=== PATIENT | female | born 1990 | race Caucasian/White ===

== ENCOUNTER 2016-04-07 17:26 | Emergency (ER) | payer BC, MEDICAID ==
--- NOTE | 2016-04-07 17:36 | ER Document Report ---
ED Medical Screen (RME) - General Stated Complaint: BLOOD PRESSURE PROBLEM Time seen by provider: 17:32 Mode of Arrival: Ambulatory Information source: Patient Notes: 26-year-old female presents to ED for elevated blood pressure when she took her pressure at [employer]. She states her blood pressure was 185/95. She's having headache with arm tingling back pain. She states she is 12 weeks . She states that [facility] and every time it's high. She states that they took did an ultrasound on Sunday and there was a heartbeat for her baby. She states she's having body aches all over including a headache. 2 para 1 I have greeted and performed a rapid initial assessment of this patient. A comprehensive ED assessment and evaluation of the patient, analysis of test results and completion of medical decision making process will be conducted by an additional ED providers. TRAVEL OUTSIDE OF THE [place] IN LAST 30 DAYS: No - Related Data Allergies/Adverse Reactions: No Known Allergies Allergy (Verified 02/26/16 16:06) Past Medical History Pulmonary Medical History: Reports: Hx Asthma Neurological Medical History: Reports: Hx Migraine Endocrine Medical History: Reports: Hx Diabetes Mellitus Type 2 Renal/ Medical History: Reports: Hx Ovarian Cysts Psychiatric Medical History: Reports: Hx Attention Deficit Hyperactivity Disorder - add, Hx Depression - Immunizations Hx Diphtheria, Pertussis, Tetanus Vaccination: Yes
[2016-04-07 18:02] LABS: ABSOLUTE EOSINOPHILS # (AUTO) 0.2 10^3/uL (0.0-0.6); ABSOLUTE LYMPHOCYTES (AUTO) 2.2 10^3/uL (0.5-4.7); ABSOLUTE MONOCYTES (AUTO) 0.5 10^3/uL (0.1-1.4); ABSOLUTE NEUT (AUTO) 10.8 10^3/uL (1.7-8.2); BASOPHILS % (AUTO) 0.2 % (0-2); EOSINOPHILS % (AUTO) 1.4 % (0-6); HEMATOCRIT 36.5 % (36.0-47.0); HEMOGLOBIN 11.9 g/dL (12.0-15.5); HGB HCT DIFFERENCE -0.8; MEAN CORPUSCULAR HEMOGLOBIN 26.7 pg (27.0-33.4); MEAN CORPUSCULAR HGB CONC 32.7 g/dL (32.0-36.0); MEAN CORPUSCULAR VOLUME 82 fl (80-97); RED BLOOD COUNT 4.47 10^6/uL (3.72-5.28); RED CELL DISTRIBUTION WIDTH 14.3 % (11.5-14.0); SEGMENTED NEUTROPHILS % (AUTO) 78.4 % (42-78); WHITE BLOOD COUNT 13.8 10^3/uL (4.0-10.5)
[2016-04-07 18:19] LABS: APPEARANCE,URINE SLIGHTLY-CLOUDY; BILIRUBIN,URINE NEGATIVE (NEGATIVE); CALCIUM OXALATE CRYSTALS,URINE FEW /HPF; GLUCOSE, URINE NEGATIVE (NEGATIVE); KETONES,URINE 20 mg/dL (NEGATIVE); LEUKOCYTE ESTERASE,URINE SMALL (NEGATIVE); NITRITE,URINE NEGATIVE (NEGATIVE); PROTEIN,URINE 30 mg/dL (NEGATIVE); URINE SPECIFIC GRAVITY 1.031; UROBILINOGEN,URINE NEGATIVE mg/dL (<2.0)
[2016-04-07 18:23] LABS: ALANINE AMINOTRANSFERASE 21 U/L (9-52); ALBUMIN 3.7 g/dL (3.5-5.0); ALKALINE PHOSPHATASE 64 U/L (38-126); ANION GAP 12 (5-19); ASPARTATE AMINO TRANSFERASE 18 U/L (14-36); BILIRUBIN,TOTAL 0.5 mg/dL (0.2-1.3); BLOOD UREA NITROGEN 10 mg/dL (7-20); CALCIUM 9.9 mg/dL (8.4-10.2); CARBON DIOXIDE 24 mmol/L (22-30); CHLORIDE 104 mmol/L (98-107); CREATININE RESULT 0.52 mg/dL (0.52-1.25); GLUCOSE 78 mg/dL (75-110); LIPASE 78.3 U/L (23-300); POTASSIUM 4.1 mmol/L (3.6-5.0); SODIUM 140.4 mmol/L (137-145); TOTAL PROTEIN 7.3 g/dL (6.3-8.2)
--- NOTE | 2016-04-07 19:25 | ER Document Report ---
ED Blood Pressure Problem - General Chief Complaint: Blood Pressure Problem Stated Complaint: BLOOD PRESSURE PROBLEM Mode of Arrival: Ambulatory Information source: Patient Notes: Patient is a 26-year-old female 12 weeks who presents to the ER today for elevated blood pressure. Patient has been having weekly appointments with her PLATFORM WORKER for her elevated blood pressure and is on lisinopril prescribed by them twice a day. Patient states that she did take that today but has not taken her second dose because it is not time yet. She admits to headache and knows that that is when her blood pressure is getting high. On arrival her blood pressure was 152/99. TRAVEL OUTSIDE OF THE [place] IN LAST 30 DAYS: No - Related Data Allergies/Adverse Reactions: No Known Allergies Allergy (Verified 04/07/16 17:34) Past Medical History - General Information source: Patient - Social History Smoking Status: Former Smoker Chew tobacco use (# tins/day): No Frequency of alcohol use: None Drug Abuse: None Family History: Reviewed & Not Pertinent Patient has suicidal ideation: No Patient has homicidal ideation: No Pulmonary Medical History: Reports: Hx Asthma Neurological Medical History: Reports: Hx Migraine Endocrine Medical History: Reports: Hx Diabetes Mellitus Type 2 Renal/ Medical History: Reports: Hx Ovarian Cysts. Denies: Hx Peritoneal Dialysis Psychiatric Medical History: Reports: Hx Attention Deficit Hyperactivity Disorder - add, Hx Depression - Immunizations Hx Diphtheria, Pertussis, Tetanus Vaccination: Yes Review of Systems - Review of Systems Constitutional: No symptoms reported EENT: No symptoms reported Cardiovascular: See HPI Respiratory: No symptoms reported Gastrointestinal: No symptoms reported Genitourinary: No symptoms reported Female Genitourinary: See HPI Musculoskeletal: No symptoms reported Skin: No symptoms reported Hematologic/Lymphatic: No symptoms reported Neurological/Psychological: No symptoms reported Physical Exam - Vital signs Vitals: Temp Pulse Resp BP Pulse Ox 98.4 F 99 18 152/99 H 99 04/07/16 17:34 04/07/16 17:34 04/07/16 17:34 04/07/16 17:34 04/07/16 17:34 - Notes Notes: PHYSICAL EXAMINATION: GENERAL: Well-appearing and in no acute distress. HEAD: Atraumatic, normocephalic. EYES: Pupils equal round and reactive to light, extraocular movements intact, sclera anicteric, conjunctiva are normal. NECK: Normal range of motion, supple without lymphadenopathy LUNGS: CTAB and equal. No wheezes rales or rhonchi. HEART: Regular rate and rhythm without murmurs EXTREMITIES: Normal range of motion, no pitting edema. No cyanosis. NEUROLOGICAL: Cranial nerves grossly intact. Normal sensory/motor exams. PSYCH: Normal mood, normal affect. SKIN: Warm, Dry, normal turgor, no rashes or lesions noted Course - Re-evaluation Re-evalutation: 04/07/16 21:40 Pt was given a dose of methyldopa here which did reduce her bp to 129/101 from 152/101 on arrival. She states that she feels much better. She has follow-up this week with her PLATFORM WORKER for this exact issue. - Vital Signs Vital signs: Temp Pulse Resp BP Pulse Ox 98.4 F 99 18 152/99 H 99 04/07/16 17:34 04/07/16 17:34 04/07/16 17:34 04/07/16 17:34 04/07/16 17:34 - Laboratory Result Diagrams: 04/07/16 17:45 04/07/16 17:45 Laboratory results interpreted by me: 04/07/16 04/07/16 04/07/16 17:45 17:45 17:45 WBC 13.8 H Hgb 11.9 L MCH 26.7 L RDW 14.3 H Seg Neutrophils % 78.4 H Absolute Neutrophils 10.8 H Beta HCG, Quant 51720.00 H Urine Protein 30 H Urine Ketones 20 H Ur Leukocyte Esterase SMALL H Discharge - Discharge Clinical Impression: Hypertension Qualifiers: Hypertension type: essential hypertension Qualified Code(s): I10 - Essential ( primary) hypertension Qualifiers: Weeks of gestation: 12 weeks Qualified Code(s): Z3A.12 - 12 weeks gestation of Condition: Stable Disposition: HOME, SELF-CARE Additional Instructions: Return immediately for any new or worsening symptoms. Follow up with primary care provider, call tomorrow to make followup appointment. Forms: Return to Work
[2016-04-07] MEDS ORDERED: METHYLDOPA 250 MG TABLET PO ONE (20:13)
[2016-04-07] MEDS ORDERED: ACETAMINOPHEN 325 MG TABLET PO ONE ×2 (20:13→23:55)
[2016-04-07] MEDS ORDERED: LISINOPRIL 10 MG TABLET PO ONE (23:47)
[2016-04-08 00:07] VITALS: BP 151/95
== END 2016-04-08 00:05 | disposition home or self-care (01) ==
LOC: ER 17:26
DX: O16.1 Unspecified maternal hypertension, first trimester (principal); Z79.899 Other long term (current) drug therapy; O26.891 Other specified pregnancy related conditions, first trimester; R51 Headache; O24.111 Pre-existing type 2 diabetes mellitus, in pregnancy, first trimester; E11.9 Type 2 diabetes mellitus without complications; Z3A.12 12 weeks gestation of pregnancy; Z87.891 Personal history of nicotine dependence
CPT/HCPCS: 99283; 36415; 84702; 83690; 85025; 80053; 81001; J3490

== ENCOUNTER 2016-07-20 14:54 | Emergency (ER) | payer BC, MEDICAID ==
--- NOTE | 2016-07-20 15:22 | ER Document Report ---
ED Skin Rash/Insect Bite/Abscs - General Chief Complaint: Rash Stated Complaint: RASH Time seen by provider: 15:22 Mode of Arrival: Ambulatory Information source: Patient Notes: 26-year-old female presents to ED for rash that started on Sunday. She states she went to the beach on [place] and Sunday. On Sunday she went to the primary doctor with swollen eyes and rash to the face they gave her some steroid eyedrops. By Sunday the left eye has started swelling they gave her IM antibiotics. She said the rash to their hand and leg and abdomen had started by Sunday and she started using Benadryl and Caladryl lotion and she has continued to have itching and rash. She is 6 months . With history of diabetes and high blood pressure. TRAVEL OUTSIDE OF THE [place] IN LAST 30 DAYS: No - HPI Patient complains to provider of: Skin rash/lesion Onset: Other Onset/Duration: - Sunday Quality of pain: No pain Severity: None Pain Level: Denies Skin Character: Rash Quality of rash: Painful Identify cause: No Exacerbated by: Denies Relieved by: Denies Similar symptoms previously: Yes Recently seen / treated by doctor: Yes - Related Data Allergies/Adverse Reactions: No Known Allergies Allergy (Verified 07/20/16 15:05) Past Medical History - General Information source: Patient - Social History Smoking Status: Never Smoker Cigarette use (# per day): No Chew tobacco use (# tins/day): No Smoking Education Provided: Yes Frequency of alcohol use: None Drug Abuse: None Lives with: Family Family History: Reviewed & Not Pertinent Patient has suicidal ideation: No Patient has homicidal ideation: No - Past Medical History Cardiac Medical History: Reports: Hx Hypertension Pulmonary Medical History: Reports: Hx Asthma EENT Medical History: Reports: None Neurological Medical History: Reports: Hx Migraine Endocrine Medical History: Reports: Hx Diabetes Mellitus Type 2 Renal/ Medical History: Reports: Hx Ovarian Cysts Malignancy Medical History: Reports: None GI Medical History: Reports: None Musculoskeltal Medical History: Reports None Skin Medical History: Reports None Psychiatric Medical History: Reports: Hx Attention Deficit Hyperactivity Disorder - add, Hx Depression Traumatic Medical History: Reports: None Infectious Medical History: Reports: None Surgical Hx: Negative Past Surgical History: Reports: None - Immunizations Hx Diphtheria, Pertussis, Tetanus Vaccination: Yes Review of Systems - Review of Systems Constitutional: No symptoms reported EENT: No symptoms reported Cardiovascular: No symptoms reported Respiratory: No symptoms reported Gastrointestinal: No symptoms reported Genitourinary: No symptoms reported Female Genitourinary: No symptoms reported Musculoskeletal: No symptoms reported Skin: No symptoms reported Hematologic/Lymphatic: No symptoms reported Neurological/Psychological: No symptoms reported -: Yes All other systems reviewed and negative Physical Exam - Vital signs Vitals: Temp Pulse Resp BP Pulse Ox 98.5 F 100 18 130/87 H 96 07/20/16 15:03 07/20/16 15:03 07/20/16 15:03 07/20/16 15:03 07/20/16 15:03 Interpretation: Normal - General General appearance: Appears well, Alert - HEENT Head: Normocephalic, Atraumatic Eyes: Normal Pupils: PERRL - Respiratory Respiratory status: No respiratory distress Chest status: Nontender Breath sounds: Normal Chest palpation: Normal - Cardiovascular Rhythm: Regular Heart sounds: Normal auscultation Murmur: No - Abdominal Inspection: Normal Distension: No distension Bowel sounds: Normal Tenderness: Nontender Organomegaly: No organomegaly - Back Back: Normal, Nontender - Extremities General upper extremity: Normal inspection, Nontender, Normal color, Normal ROM , Normal temperature General lower extremity: Normal inspection, Nontender, Normal color, Normal ROM , Normal temperature, Normal weight bearing. No: Merly's sign - Neurological Neuro grossly intact: Yes Cognition: Normal Orientation: AAOx4 [place] Coma Scale Eye Opening: Spontaneous [place] Coma Scale Verbal: Oriented [place] Coma Scale Motor: Obeys Commands [place] Coma Scale Total: 15 Speech: Normal Motor strength normal: LUE, RUE, LLE, RLE Sensory: Normal - Psychological Associated symptoms: Normal affect, Normal mood - Skin Skin Temperature: Warm Skin Moisture: Dry Skin Color: Normal Skin irregularity: Rash Location of irregularity: Face, Abdomen, Extremities Character of irregularity: Maculopapular, Urticarial Course - Re-evaluation Re-evalutation: 07/20/16 16:11 Patient is [address] rash [address] Gaston did a . Will treat with 1% [id number] cortisone cream, Caladryl, Domeboro solution. Patient to follow-up with her CHILD PSYCHOLOGY TEACHER. Patient to be off work until Sunday to help with the itching and rash. - Vital Signs Vital signs: Temp Pulse Resp BP Pulse Ox 98.5 F 100 18 130/87 H 96 07/20/16 15:03 07/20/16 15:03 07/20/16 15:03 07/20/16 15:03 07/20/16 15:03 Discharge - Discharge Clinical Impression: Contact dermatitis Qualifiers: Contact dermatitis type: allergic Contact dermatitis trigger: unspecified trigger Qualified Code(s): L23.9 - Allergic contact dermatitis, unspecified cause Condition: Stable Disposition: HOME, SELF-CARE Additional Instructions: ACUTE ALLERGIC REACTION: Your symptoms are due to an allergic reaction. Allergy can cause hives, swelling of the hands, feet, and face, hoarseness, and difficulty swallowing or breathing. It may be due to exposure to medication, animal dander, foods, infection, or insect bites. Medication is a common cause, even when prior use of this same medication caused no problems. Acute treatment may include adrenalin and antihistamines. Usually, the specific allergic agent can't be identified unless repeated episodes occur. Home treatment includes the following: (1) Stop any suspicious medications. This will be discussed with you. (2) Oral antihistamines for the next four to five days. Example, diphenhydramine (Benadryl) every four hours. (3) You may also use cimetidine (Tagamet), ranitidine (Zantac), or famotidine ( Pepcid) every four hours if diphenhydramine is not controlling itching and hives. (4) Avoid aspirin until the hives completely disappear. (5) Avoid hot baths or showers until the hives are completely gone. Call the doctor if faintness, difficulty swallowing, tightness in the chest , or wheezing occurs. You could use a 1% hydrocortisone cream to the itchy areas to help control the itching and help to dry out the rash. Continue to use your Caladryl lotion. Use Domeboro solution to make cool compresses to help with the itching use up to 4 times a day. USE OF DIPHENHYDRAMINE: The use of diphenhydramine (Benadryl) has been recommended to control allergic symptoms. The 25 mg strength is available over- the-counter, as well as the elixir. This antihistamine is used for many symptoms. It's useful for itching, watering eyes and nose, allergic swelling, hives, and insect stings. The medication can be repeated four times daily. Age Elixir (12.5 mg/tsp) 25 mg pill 2-3 yr 1/2 tsp 4-8 yr 1 tsp 9-14 yr 2 tsp one tab adult 1-2 tabs Antihistamines may cause drowsiness, especially with the first dose. Do not operate machinery or drive while under the effects of the medication. Do not combine the medication with alcohol, or with any other medication without talking to your doctor. FOLLOW-UP CARE: If you have been referred to a physician for follow-up care, call the physician s office for an appointment as you were instructed or within the next two days. If you experience worsening or a significant change in your symptoms, notify the physician immediately or return to the Emergency Department at any time for re-evaluation. Forms: Return to Work Referrals: [facility] [Provider Group] - Follow up as needed
[2016-07-20 16:19] VITALS: BP 124/77
== END 2016-07-20 16:08 | disposition home or self-care (01) ==
LOC: ER 14:54
DX: L23.9 Allergic contact dermatitis, unspecified cause (principal); R21 Rash and other nonspecific skin eruption; E11.9 Type 2 diabetes mellitus without complications; I10 Essential (primary) hypertension
CPT/HCPCS: 99282

== ENCOUNTER 2016-09-07 16:18 | Outpatient (CLI) | payer BC, MEDICAID ==
[2016-09-07] MEDS ORDERED: ACETAMINOPHEN 325 MG TABLET ONE (16:35)
[2016-09-07 17:28] LABS: ABSOLUTE EOSINOPHILS # (AUTO) 0.2 10^3/uL (0.0-0.6); ABSOLUTE LYMPHOCYTES (AUTO) 1.8 10^3/uL (0.5-4.7); ABSOLUTE MONOCYTES (AUTO) 0.7 10^3/uL (0.1-1.4); ABSOLUTE NEUT (AUTO) 9.6 10^3/uL (1.7-8.2); BASOPHILS % (AUTO) 0.4 % (0-2); EOSINOPHILS % (AUTO) 1.8 % (0-6); HEMATOCRIT 31.6 % (36.0-47.0); HGB HCT DIFFERENCE -1.6; LYMPHOCYTES % (AUTO) 14.6 % (13-45); MEAN CORPUSCULAR HEMOGLOBIN 23.7 pg (27.0-33.4); MEAN CORPUSCULAR HGB CONC 31.6 g/dL (32.0-36.0); MEAN CORPUSCULAR VOLUME 75 fl (80-97); MONOCYTES % (AUTO) 5.3 % (3-13); RED BLOOD COUNT 4.21 10^6/uL (3.72-5.28); RED CELL DISTRIBUTION WIDTH 13.7 % (11.5-14.0); SEGMENTED NEUTROPHILS % (AUTO) 77.9 % (42-78); WHITE BLOOD COUNT 12.4 10^3/uL (4.0-10.5)
[2016-09-07 17:33] LABS: APPEARANCE,URINE CLOUDY; BILIRUBIN,URINE NEGATIVE (NEGATIVE); CALCIUM OXALATE CRYSTALS,URINE TOO NUMEROUS TO CNT /HPF; GLUCOSE, URINE NEGATIVE (NEGATIVE); KETONES,URINE TRACE mg/dL (NEGATIVE); LEUKOCYTE ESTERASE,URINE MODERATE (NEGATIVE); NITRITE,URINE NEGATIVE (NEGATIVE); PROTEIN,URINE 30 mg/dL (NEGATIVE); URINE SPECIFIC GRAVITY 1.027; UROBILINOGEN,URINE NEGATIVE mg/dL (<2.0)
[2016-09-07 17:42] LABS: ALANINE AMINOTRANSFERASE 22 U/L (9-52); ALBUMIN 3.2 g/dL (3.5-5.0); ALKALINE PHOSPHATASE 111 U/L (38-126); ANION GAP 11 (5-19); ASPARTATE AMINO TRANSFERASE 13 U/L (14-36); BILIRUBIN,DIRECT 0.3 mg/dL (0.0-0.4); BILIRUBIN,TOTAL 0.4 mg/dL (0.2-1.3); BLOOD UREA NITROGEN 8 mg/dL (7-20); CALCIUM 9.2 mg/dL (8.4-10.2); CARBON DIOXIDE 19 mmol/L (22-30); CHLORIDE 108 mmol/L (98-107); CREATININE RESULT 0.48 mg/dL (0.52-1.25); GLUCOSE 93 mg/dL (75-110); LDH 328 U/L (313-618); POTASSIUM 4.1 mmol/L (3.6-5.0); SODIUM 138.3 mmol/L (137-145); TOTAL PROTEIN 6.5 g/dL (6.3-8.2); URIC ACID 4.8 mg/dL (2.5-6.2)
[2016-09-07 17:49] LABS: URINE BARBITURATES SCREEN NEGATIVE; URINE METHADONE SCREEN NEGATIVE; URINE OPIATES LOW NEGATIVE; URINE PHENCYCLIDINE SCREEN NEGATIVE
[2016-09-07 17:54] LABS: URINE CREATININE 171.4 mg/dL (16-327); URINE PROTEIN 13.2 mg/dL (<12)
== END 2016-09-07 18:08 | disposition home or self-care (01) ==
LOC: LC 16:18
PROVIDERS: ATTEND Obstetrics & Gynecology
PROC: 4A1HXCZ Monitoring of Products of Conception, Cardiac Rate, External Approach (ICD-10-PCS; principal; 2016-09-07)
DX: R51 Headache (principal); Z3A.34 34 weeks gestation of pregnancy
CPT/HCPCS: 36415; 59025; 80053; 80307; 81001; 82570; 83615; 84156; 84550; 85025

== ENCOUNTER 2016-09-11 16:35 | Outpatient (CLI) | payer BC, MEDICAID | END 2016-09-11 17:09 | disposition home or self-care (01) | LOC: LC 16:35 | PROVIDERS: ATTEND Specialist | PROC: 4A1HXCZ Monitoring of Products of Conception, Cardiac Rate, External Approach (ICD-10-PCS; principal; 2016-09-11) | DX: O24.419 Gestational diabetes mellitus in pregnancy, unspecified control (principal); Z3A.35 35 weeks gestation of pregnancy | CPT/HCPCS: 59025 ==

== ENCOUNTER 2016-09-25 18:30 | Outpatient (CLI) | payer BC, MEDICAID ==
[2016-09-25 19:19] LABS: APPEARANCE,URINE CLOUDY; BILIRUBIN,URINE NEGATIVE (NEGATIVE); GLUCOSE, URINE NEGATIVE (NEGATIVE); KETONES,URINE TRACE mg/dL (NEGATIVE); LEUKOCYTE ESTERASE,URINE MODERATE (NEGATIVE); NITRITE,URINE NEGATIVE (NEGATIVE); PROTEIN,URINE 100 mg/dL (NEGATIVE); UROBILINOGEN,URINE NEGATIVE mg/dL (<2.0)
[2016-09-25 19:29] LABS: ABSOLUTE EOSINOPHILS # (AUTO) 0.1 10^3/uL (0.0-0.6); ABSOLUTE MONOCYTES (AUTO) 0.6 10^3/uL (0.1-1.4); ABSOLUTE NEUT (AUTO) 6.8 10^3/uL (1.7-8.2); BASOPHILS % (AUTO) 0.5 % (0-2); EOSINOPHILS % (AUTO) 1.5 % (0-6); HEMATOCRIT 32.4 % (36.0-47.0); HGB HCT DIFFERENCE -2.4; LYMPHOCYTES % (AUTO) 21.1 % (13-45); MEAN CORPUSCULAR HEMOGLOBIN 22.9 pg (27.0-33.4); MEAN CORPUSCULAR VOLUME 74 fl (80-97); RED BLOOD COUNT 4.37 10^6/uL (3.72-5.28); RED CELL DISTRIBUTION WIDTH 14.1 % (11.5-14.0); SEGMENTED NEUTROPHILS % (AUTO) 70.9 % (42-78); WHITE BLOOD COUNT 9.5 10^3/uL (4.0-10.5)
[2016-09-25 19:37] LABS: URINE BARBITURATES SCREEN NEGATIVE; URINE METHADONE SCREEN NEGATIVE; URINE OPIATES LOW NEGATIVE; URINE PHENCYCLIDINE SCREEN NEGATIVE
[2016-09-25 19:50] LABS: ALANINE AMINOTRANSFERASE 22 U/L (9-52); ALBUMIN 3.1 g/dL (3.5-5.0); ALKALINE PHOSPHATASE 119 U/L (38-126); ANION GAP 11 (5-19); ASPARTATE AMINO TRANSFERASE 14 U/L (14-36); BILIRUBIN,DIRECT 0.3 mg/dL (0.0-0.4); BILIRUBIN,TOTAL 0.4 mg/dL (0.2-1.3); BLOOD UREA NITROGEN 9 mg/dL (7-20); CALCIUM 9.1 mg/dL (8.4-10.2); CARBON DIOXIDE 20 mmol/L (22-30); CHLORIDE 107 mmol/L (98-107); CREATININE RESULT 0.57 mg/dL (0.52-1.25); GLUCOSE 102 mg/dL (75-110); LDH 331 U/L (313-618); POTASSIUM 4.1 mmol/L (3.6-5.0); SODIUM 137.6 mmol/L (137-145); TOTAL PROTEIN 6.4 g/dL (6.3-8.2)
--- NOTE | 2016-09-25 20:06 | Non Stress Test Report ---
Non Stress Test Datetime Report Generated by CPN: 09/25/2016 20:05 DEMOGRAPHIC Test Number: 1 EGA NST: 37.0 EGA NST: 35.0 INDICATION Indication for Study: Chronic Hypertension; Ordered by Provider Indication for Study: Ordered by Provider Indication for Study (NST) Other: GDM MONITORING Monitor Explained: Monitor Explained; Test Explained; Patient Verbalized Understanding Monitor Explained: Monitor Explained; Test Explained; Patient Verbalized Understanding Time on Monitor: 09/25/2016 18:40 Time on Monitor: 09/11/2016 16:41 Time off Monitor: 09/25/2016 19:48 Time off Monitor: 09/11/2016 17:02 NST Duration: 68 NST Duration: 21 NST INTERVENTIONS NST Interventions: PO Hydration; Reposition Patient Physician Notified NST: Avery Physician Notified NST: DrDiomedes Katja BABY A: [id number] BABY A Movement : Present Movement : Present Contraction Frequency : 0 FHR Baseline : 140 Accelerations : 15X15 Accelerations : 15X15 Decelerations : None Decelerations : None Variability : Moderate 6-25bpm Variability : Moderate 6-25bpm NST Review: Meets Criteria for Reactive NST NST Review: Meets Criteria for Reactive NST NST Review and Verified By : Ellen Casas RN NST Review and Verified By : Deanna AMADO NST Results: Reactive NST Results: Reactive NST REPORT Report Trigger: Send Report
== END 2016-09-25 20:01 | disposition home or self-care (01) ==
LOC: LC 18:30
PROVIDERS: ATTEND Obstetrics & Gynecology
PROC: 4A0HXCZ Measurement of Products of Conception, Cardiac Rate, External Approach (ICD-10-PCS; principal; 2016-09-25)
DX: O47.03 False labor before 37 completed weeks of gestation, third trimester (principal); Z3A.37 37 weeks gestation of pregnancy
CPT/HCPCS: 36415; 59025; 80053; 80307; 81001; 83615; 84550; 85025

== ENCOUNTER 2016-09-26 22:39 | Inpatient (IN) | payer BC, MEDICAID ==
[2016-09-26] MEDS ORDERED: DINOPROSTONE 10 MG VAGINAL INSERT.SR PV PRN (23:08)
[2016-09-26] MEDS ORDERED: RINGERS SOLUTION,LACTATED 300 ML IV ONE (23:08)
[2016-09-26 23:30] LABS: ABSOLUTE EOSINOPHILS # (AUTO) 0.2 10^3/uL (0.0-0.6); ABSOLUTE LYMPHOCYTES (AUTO) 2.1 10^3/uL (0.5-4.7); ABSOLUTE MONOCYTES (AUTO) 0.6 10^3/uL (0.1-1.4); ABSOLUTE NEUT (AUTO) 6.3 10^3/uL (1.7-8.2); BASOPHILS % (AUTO) 0.4 % (0-2); EOSINOPHILS % (AUTO) 1.7 % (0-6); HEMATOCRIT 32.3 % (36.0-47.0); HEMOGLOBIN 10.2 g/dL (12.0-15.5); HGB HCT DIFFERENCE -1.7; LYMPHOCYTES % (AUTO) 23.1 % (13-45); MEAN CORPUSCULAR HEMOGLOBIN 23.3 pg (27.0-33.4); MEAN CORPUSCULAR HGB CONC 31.6 g/dL (32.0-36.0); MEAN CORPUSCULAR VOLUME 74 fl (80-97); MONOCYTES % (AUTO) 6.7 % (3-13); RED BLOOD COUNT 4.38 10^6/uL (3.72-5.28); RED CELL DISTRIBUTION WIDTH 14.2 % (11.5-14.0); SEGMENTED NEUTROPHILS % (AUTO) 68.1 % (42-78); WHITE BLOOD COUNT 9.3 10^3/uL (4.0-10.5)
[2016-09-26 23:31] LABS: APPEARANCE,URINE CLOUDY; BILIRUBIN,URINE NEGATIVE (NEGATIVE); GLUCOSE, URINE NEGATIVE (NEGATIVE); KETONES,URINE NEGATIVE (NEGATIVE); LEUKOCYTE ESTERASE,URINE LARGE (NEGATIVE); NITRITE,URINE NEGATIVE (NEGATIVE); PROTEIN,URINE 30 mg/dL (NEGATIVE); URINE SPECIFIC GRAVITY 1.017; UROBILINOGEN,URINE NEGATIVE mg/dL (<2.0)
[2016-09-26 23:46] LABS: URINE BARBITURATES SCREEN NEGATIVE; URINE METHADONE SCREEN NEGATIVE; URINE OPIATES LOW NEGATIVE; URINE PHENCYCLIDINE SCREEN NEGATIVE
[2016-09-26] MEDS: RINGERS SOLUTION,LACTATED 1,000 ML IV PRN (23:50)
[2016-09-26] MEDS ORDERED: MAG HYDROX/AL HYDROX/SIMETH SUSP 30 ML UDCUP ONE (23:50)
[2016-09-27] MEDS ORDERED: DINOPROSTONE 10 MG VAGINAL INSERT.SR ONE (00:18)
[2016-09-27] MEDS: RINGERS SOLUTION,LACTATED 1,000 ML IV PRN ×2 (04:10→14:28)
[2016-09-27 07:26] LABS: ABSOLUTE EOSINOPHILS # (AUTO) 0.1 10^3/uL (0.0-0.6); ABSOLUTE LYMPHOCYTES (AUTO) 1.6 10^3/uL (0.5-4.7); ABSOLUTE MONOCYTES (AUTO) 0.5 10^3/uL (0.1-1.4); ABSOLUTE NEUT (AUTO) 6.5 10^3/uL (1.7-8.2); BASOPHILS % (AUTO) 0.3 % (0-2); HEMATOCRIT 30.8 % (36.0-47.0); HEMOGLOBIN 9.8 g/dL (12.0-15.5); HGB HCT DIFFERENCE -1.4; LYMPHOCYTES % (AUTO) 18.8 % (13-45); MEAN CORPUSCULAR HEMOGLOBIN 23.4 pg (27.0-33.4); MEAN CORPUSCULAR HGB CONC 31.8 g/dL (32.0-36.0); MEAN CORPUSCULAR VOLUME 74 fl (80-97); MONOCYTES % (AUTO) 5.6 % (3-13); RED BLOOD COUNT 4.19 10^6/uL (3.72-5.28); RED CELL DISTRIBUTION WIDTH 14.1 % (11.5-14.0); SEGMENTED NEUTROPHILS % (AUTO) 74.3 % (42-78); WHITE BLOOD COUNT 8.8 10^3/uL (4.0-10.5)
[2016-09-27 07:46] LABS: BLOOD UREA NITROGEN 6 mg/dL (7-20); CALCIUM 8.8 mg/dL (8.4-10.2); CREATININE RESULT 0.48 mg/dL (0.52-1.25); GLUCOSE 77 mg/dL (75-110)
[2016-09-27 07:47] LABS: ALANINE AMINOTRANSFERASE 23 U/L (9-52); ALBUMIN 2.9 g/dL (3.5-5.0); ALKALINE PHOSPHATASE 120 U/L (38-126); ANION GAP 8 (5-19); ASPARTATE AMINO TRANSFERASE 14 U/L (14-36); BILIRUBIN,DIRECT 0.2 mg/dL (0.0-0.4); BILIRUBIN,TOTAL 0.4 mg/dL (0.2-1.3); CARBON DIOXIDE 22 mmol/L (22-30); CHLORIDE 108 mmol/L (98-107); LDH 291 U/L (313-618); POTASSIUM 4.3 mmol/L (3.6-5.0); SODIUM 138.1 mmol/L (137-145); TOTAL PROTEIN 6.1 g/dL (6.3-8.2); URIC ACID 4.7 mg/dL (2.5-6.2)
[2016-09-27] MEDS ORDERED: OXYTOCIN/NORMAL SALINE 1,000 ML IV PRN ×2 (09:12→16:03)
[2016-09-27] MEDS ORDERED: METHYLDOPA 250 MG TABLET ONE (09:17)
[2016-09-27] MEDS: METFORMIN HCL 500 MG TABLET PO SCH ×3 (09:19→18:34)
[2016-09-27] MEDS ORDERED: OXYTOCIN/NORMAL SALINE 20 UNIT/1,000 ML RTUINJ ONE (09:35)
[2016-09-27] MEDS ORDERED: METHYLDOPA 250 MG TABLET PO SCH (10:00)
[2016-09-27] MEDS ORDERED: HYDRALAZINE HCL INJ/PF 20 MG/1 ML SDV IV ONE (13:25)
[2016-09-27] MEDS ORDERED: HYDRALAZINE HCL INJ/PF 20 MG/1 ML SDV ONE (13:45)
[2016-09-27] MEDS ORDERED: CITRIC ACID/SODIUM CITRATE ORAL SOLN 15 ML UDCUP PO ONE (14:20)
[2016-09-27] MEDS ORDERED: CITRIC ACID/SODIUM CITRATE ORAL SOLN 15 ML UDCUP ONE (14:25)
[2016-09-27] MEDS ORDERED: MISOPROSTOL 0.2 MG TABLET ONE (15:21)
[2016-09-27] MEDS ORDERED: IBUPROFEN 800 MG TABLET ONE (16:02)
[2016-09-27] MEDS ORDERED: MEASLES,MUMPS&RUBELLA VACC/PF 0.5 ML VIAL SUBCUT PRN (16:03)
[2016-09-27] MEDS ORDERED: ZOLPIDEM TARTRATE 5 MG TABLET PO PRN (16:03)
[2016-09-27] MEDS ORDERED: DIPH/PERTUSS(ACELL)/TETANUS VAC/PF 0.5 ML SYR (>=10YO) IM PRN (16:03)
[2016-09-27] MEDS ORDERED: ACETAMINOPHEN WITH CODEINE #3 TABLET PO PRN (16:03)
[2016-09-27] MEDS ORDERED: DIBUCAINE 1% OINTMENT 28 GM TP PRN (16:03)
[2016-09-27] MEDS ORDERED: BENZOCAINE/MENTHOL AEROSOL SPRAY 56 ML TOP PRN (16:03)
--- NOTE | 2016-09-27 17:18 | Delivery Summary ---
Del Sum A-C Datetime Report Generated by CPN: 09/27/2016 17:17 DELIVERY PERSONNEL DELIVERY PERSONNEL: [id number] Delivery Doctor:: Jennifer Kilpatrick CNM Nurse Adolescent Psychiatrist Certified:: Jennifer Kilpatrick CNM Labor and Delivery Nurse:: Scarlet Hicks RNmanager payment Nurse:: INGRIS Niño Fres[place] Artist/POLA: Chalino Mayen, HOSE TURNER MATERNAL INFORMATION Delivery Anesthesia: None Medications After Delivery: Pitocin Bolus-Please Comment; Other-Please Comment Meds After Delivery Comment: Pitocin 20 units in 1000 ml nss open for bolus, 1000mcg cytotec [place] Estimated Blood Loss (ml): 350 Maternal Complications: Other Provider Comments: of viable female infant, head, shoulders, and body delivered without difficulty, infant iwth spontaneous cry and respirations, to maternal abdomen. Cord clamped X2 after 2 min delay, cut free by pts support person. Spontaneous delivery of placenta via hoffman, appears intact 3VC. Vagina and perineum inspected, no lacerations noted. Hemostasis acheived with external fundal massage and IV pitocin. Routine pp care. LABOR SUMMARY EDC: 10/16/2016 00:00 No. Babies in Womb: 1 Attempted: No Labor Anesthesia: None LABOR INFORMATION Reason for Induction: Gestational Hypertension Onset of Labor: 09/27/2016 11:59 Complete Dilatation: 09/27/2016 15:06 Cervical Ripening Agents: Cervidil Oxytocin: Induction Group B Beta Strep: Negative Antibiotics # of Doses: N/A Steroids Given: None Reason Steroids Not Administered: Not Applicable MEMBRANES Membranes Rupture Method: Artificial Rupture of Membranes: 09/27/2016 11:59 Length of Rupture (hr): 3.18 Amniotic Fluid Color: Clear Amniotic Fluid Amount: Moderate Amniotic Fluid Odor: Normal STAGES OF LABOR Stage 1 hr: 3 Stage 1 min: 7 Stage 2 hr: 0 Stage 2 min: 4 Stage 3 hr: 0 Stage 3 min: 4 Total Time in Labor hr: 3 Total Time in Labor min: 15 VAGINAL DELIVERY Episiotomy: None Laceration Extension: N/A Laceration Type: None Laceration Repair: Not Applicable Laceration Repair Note: n/a Sponge Count Correct: N/A Sharps Count Correct: N/A BABY A INFORMATION Delivery Date/Time: 09/27/2016 15:10 Method of Delivery: Vaginal Born in Route : No : N/A Forceps: N/A Vacuum Extraction: N/A Shoulder Dystocia : No PRESENTATION/POSITION BABY A Presentation: Cephalic Cephalic Presentation: Vertex Vertex Position: Right Occipital Anterior Breech Presentation: N/A PLACENTA INFORMATION BABY A Placenta Delivery Time : 09/27/2016 15:14 Placenta Method of Delivery: Spontaneous Placenta Status: Delivered SCORES BABY A Heart Rate 1 min: >100 bpm Resp Effort 1 min: Good Cry Reflex Irritability 1 min: Cough or Sneeze or Pulls Away Muscle Tone 1 min: Active Motion Color 1 min: Body [place], Extremities Blue Resuscitation Effort 1 min: Tactile Stimulation SCORE 1 MIN: 9 Heart Rate 5 min: >100 bpm Resp Effort 5 min: Good Cry Reflex Irritability 5 min: Cough or Sneeze or Pulls Away Muscle Tone 5 min: Active Motion Color 5 min: Body [place], Extremities Blue Resuscitation Effort 5 min: Tactile Stimulation SCORE 5 MIN: 9 INFORMATION BABY A Gestational Age at Delivery: 37.2 Gestational Status: Early Term- 37- 38.6 Weeks Outcome : Liveborn Infant Condition : Stable Infant Sex: Female IDENTIFICATION BABY A Infant Verification Date/Time: 09/27/2016 15:51 ID Band Number: [id number] Mother's Name Verified: Yes RN Verifying Infant: Laura Hicks, RN/ CDiomedes Ana, RN WEIGHT/LENGTH BABY A Birthweight (gm): 3265 Weight (lb): 7 Infant Weight (oz): 3 Length (in): 20.50 Length (cm): 52.07 CORD INFORMATION BABY A No. Cord Vessels: 3 Nuchal Cord : N/A Cord Blood Taken: Yes-For Eval (Mom's Blood Type - or O+) Suction: None ASSESSMENT BABY A Infant Complications: None Physical Findings at Delivery: Puncture Wound from Scalp Electrode Respirations: Appears Normal Skin to Skin: Yes Wholesale Account Executive/ALS Called : No Care By: Laura Hicks RN Transferred To: Remains with Mother BABY B INFORMATION : N/A SIGNATURES Assignment: Key Salazar MD Signature: with User ID: [email or web address] : with User ID: [email or web address]
--- NOTE | 2016-09-27 17:47 | Admission Physical ---
Datetime Report Generated by CPN: 09/27/2016 17:46 CURRENT ADMISSION Hx Assessment: The History has been Reviewed and is Current Chief Complaint: Scheduled Induction of Labor Indication for Induction: Chronic Hypertension; Maternal Diabetes Admit Plan: Initiate Labor Protocol ALLERGIES Medication Allergies: No Medication Allergies: No Known Allergies (09/25/2016) Medication Allergies: No Known Allergies (09/07/2016) Medication Allergies: No Known Allergies (07/20/2016) Medication Allergies: No Known Allergies (02/26/2016) Medication Allergies: No Known Allergies (03/26/2012) Latex: No Latex Allergies Food Allergies: N/A Environmental Allergies: N/A OBSTETRICAL HISTORY EDC: 10/16/2016 00:00 : 2 Para: 1 Gestational Diabetes: Yes Rh Sensitization: No Incompetent Cervix: No YIN: No Infertility: No ART Treatment: No Uterine Anomaly: No IUGR: No Hx Previous C/S: No Macrosomia: No Hx Loss/Stillborn: No PIH: No Hx : No Placenta Previa/Abruption: No Depression/PP Depression: Yes PTL/PROM: No Post Hemorrhage: No Current Procedures: Ultrasound; NST Obstetrical History Comments: G1 - 2013, , girl G2 - Current SEE RECORDS Alcohol: No Marijuana : No Cocaine: No Other Illicit Drugs: No Cigarettes: Former Smoker. [id number] MEDICAL HISTORY Diabetes: Yes Diabetes Type: Gestational Diabetes Blood Transfusion: No Pulmonary Disease (Asthma, TB): No Breast Disease: No Hypertension: Yes Process Safety Manager Surgery: No Heart Disease: No Hosp/Surgery: Yes Autoimmune Disorder: No Anesthetic Complications: No Kidney Disease: No Abnormal Pap Smear: No Neuro/Epilepsy: No Psychiatric Disorders: No Other Medical Diseases: No Hepatitis/Liver Disease: No Significant Family History: No Varicosities/Phlebitis: No Trauma/Violence : No Thyroid Dysfunction: No Medical History Comments: HTN, depression, GDM INFECTIOUS HISTORY Gonorrhea: No Genital Herpes: No Chlamydia: No Tuberculosis: No Syphilis: No Hepatitis: No HIV/AIDS Exposure: No Rash or Viral Illness: No HPV: No PHYSICAL EXAM General: Normal HEENT: Normal Neurologic: Normal Thyroid: Normal Heart: Normal Lungs: Normal Breast: Normal Back: Normal Abdomen: Normal Genitourinary Exam: Normal Extremities: Normal DTRs: Normal Pelvic Type: Adequate Physical Exam Comments: efw 6 pounds 12 oz on recent sono gbs neg pt with worsening bps with diastolics over 100 in clinic cervix closed per rn on arrival Vital Signs: Reviewed FETUS A EGA: 37.2 Monitoring: External US FHR Category: Category I Admit Comment: Pt with PCOS and chtn-worsening at 37 wks -cont metformin, aldomet and wellbutrin follow FS, check cmp cervidil placed on arrival PLANS FOR LABOR AND DELIVERY Labor and Delivery: None Pain Management: Medications Feeding Preference: Formula Benefit of Breast Feed Discussed: Yes Circumcision: N/A INFORMED CONSENT Signature: with User ID: [email or web address]
[2016-09-27] MEDS: DOCUSATE SODIUM 100 MG CAPSULE PO SCH (18:33)
[2016-09-27] MEDS: ACETAMINOPHEN WITH CODEINE #3 TABLET PO PRN (18:33)
[2016-09-27] MEDS: FERROUS SULFATE 325 MG TABLET PO SCH (18:34)
[2016-09-27] MEDS: IBUPROFEN 800 MG TABLET PO SCH (21:21)
[2016-09-27] MEDS: METHYLDOPA 250 MG TABLET PO SCH (22:43)
[2016-09-28] MEDS: IBUPROFEN 800 MG TABLET PO SCH ×3 (06:33→21:16)
[2016-09-28] MEDS: SENNOSIDES/DOCUSATE 8.6-50 MG 1 EACH TABLET PO SCH (09:01)
[2016-09-28] MEDS: PRENATAL VITAMIN W-O CA NO5/FE FUMARATE/FA CAPSULE PO SCH (09:01)
[2016-09-28] MEDS: DOCUSATE SODIUM 100 MG CAPSULE PO SCH ×2 (09:02→16:58)
[2016-09-28] MEDS: FERROUS SULFATE 325 MG TABLET PO SCH ×2 (09:02→16:58)
[2016-09-28] MEDS: ACETAMINOPHEN WITH CODEINE #3 TABLET PO PRN ×3 (09:03→22:34)
[2016-09-28] MEDS: METHYLDOPA 250 MG TABLET PO SCH ×2 (09:50→21:16)
[2016-09-28] MEDS: METFORMIN HCL 500 MG TABLET PO SCH ×3 (09:50→16:58)
[2016-09-28 10:52] LABS: HEMATOCRIT 27.6 % (36.0-47.0); HEMOGLOBIN 8.8 g/dL (12.0-15.5); HGB HCT DIFFERENCE -1.2; MEAN CORPUSCULAR HEMOGLOBIN 23.2 pg (27.0-33.4); MEAN CORPUSCULAR HGB CONC 31.8 g/dL (32.0-36.0); MEAN CORPUSCULAR VOLUME 73 fl (80-97); RED BLOOD COUNT 3.79 10^6/uL (3.72-5.28); RED CELL DISTRIBUTION WIDTH 14.3 % (11.5-14.0); WHITE BLOOD COUNT 9.9 10^3/uL (4.0-10.5)
--- NOTE | 2016-09-28 12:55 | PDOC PROGRESS REPORT ---
Subjective-OB Subjective: Post Delivery Day: 26 year old. Denies any needs at this time pt bonding well with infant and family bottlefeeding [id number] mild lochia offers no complaints denies headaches vital signs reviewed Physical Exam (OB) Vital Signs: Temp Pulse Resp BP Pulse Ox 97.8 F 92 20 129/88 H 99 09/28/16 11:04 09/28/16 11:04 09/28/16 11:04 09/28/16 11:04 09/28/16 11:04 Intake & Output 09/27/16 09/28/16 09/29/16 06:59 06:59 06:59 Intake Total 150 Balance 150 Weight 110.6 kg - PIH/Pre-Eclampsia DTR's: 1 + Clonus: Negative Headache: Absent Epigastric Pain: No Visual Changes: No - Lochia Lochia Amount: Small 10-25 ml Lochia Color: Rubra/Red - Abdomen Description: Tender, Soft, Round Hernia Present: No Fundal Description: Firm, Midline Fundal Height: u/u - u/2 Objective-Diagnostic Laboratory: 09/28/16 10:45 09/27/16 07:10 09/28/16 10:45 WBC 9.9 RBC 3.79 Hgb 8.8 L Hct 27.6 L MCV 73 L MCH 23.2 L MCHC 31.8 L RDW 14.3 H Plt Count 298
[2016-09-29] MEDS: ACETAMINOPHEN WITH CODEINE #3 TABLET PO PRN ×2 (05:43→10:01)
[2016-09-29] MEDS: IBUPROFEN 800 MG TABLET PO SCH (05:44)
[2016-09-29] MEDS: FERROUS SULFATE 325 MG TABLET PO SCH (09:55)
[2016-09-29] MEDS: SENNOSIDES/DOCUSATE 8.6-50 MG 1 EACH TABLET PO SCH (09:55)
[2016-09-29] MEDS: DOCUSATE SODIUM 100 MG CAPSULE PO SCH (09:55)
[2016-09-29] MEDS: METFORMIN HCL 500 MG TABLET PO SCH (09:55)
[2016-09-29] MEDS: METHYLDOPA 250 MG TABLET PO SCH (09:56)
[2016-09-29] MEDS: PRENATAL VITAMIN W-O CA NO5/FE FUMARATE/FA CAPSULE PO SCH (09:56)
--- NOTE | 2016-09-29 11:43 | PDOC DISCHARGE SUMMARY ---
Final Diagnosis Discharge Date: 09/29/16 - Final Diagnosis (1) Acute blood loss anemia Is this a current diagnosis for this admission?: Yes (2) Chronic hypertension Is this a current diagnosis for this admission?: Yes (3) Vaginal delivery Is this a current diagnosis for this admission?: Yes Discharge Data - Discharge Medication Home Medications: Pnv with Ca,No.72/Iron/FA [ Plus Tablet] 1 tab PO DAILY 02/23/13 Bupropion HCl [Wellbutrin Xl 150 mg 24hr Tablet] 150 mg PO DAILY 09/07/16 Metformin HCl 500 mg PO DAILY 09/07/16 Methyldopa [Aldomet 250 mg Tablet] 250 mg PO BID 09/07/16 Gestational Age: 37.2 Reason(s) for Admission: Induction of Labor Procedures: NST Intrapartum Procedure(s): Spontaneous Vaginal Delivery - Data Baby 1 Female at 1 minute: 9 at 5 minutes: 9 Weight: 3265 kg Home with Mother: Yes Complications: No - Diagnosis Test Laboratory: Temp Pulse Resp BP Pulse Ox 98.0 F 93 16 134/91 H 99 09/29/16 08:00 09/29/16 08:00 09/29/16 08:00 09/29/16 08:00 09/29/16 08:00 09/26/16 09/26/16 09/27/16 22:57 23:17 07:10 RBC 4.38 4.19 Hgb 10.2 L 9.8 L Hct 32.3 L 30.8 L Urine Opiates Screen NEGATIVE 09/28/16 10:45 RBC 3.79 Hgb 8.8 L Hct 27.6 L Urine Opiates Screen - Discharge information/Instructions Discharge Activity: Activity As Tolerated, Pelvic Rest, No tub bath Discharge Diet: Regular Disposition: HOME, SELF-CARE Follow up with: [facility] in: 1, Weeks
[2016-09-29 11:49] VITALS: BP 138/94
--- NOTE | 2016-10-09 13:48 | DISCHARGE SUMMARY E ---
Discharge Summary NAME: SUSI LOZOYA : 1990 AGE: 26Y ADMITTED: 09/26/2016 DISCHARGED: 09/29/2016 ADDENDUM RESPONSE TO INQUIRY DISCHARGE DIAGNOSIS: Chronic hypertension with superimposed preeclampsia, now delivered. DICTATING PHYSICIAN: MARK ANTHONY VINES M.D. [id number] PHY#: [id number] ID: [id number] JOB#: [id number] ACCT: [id number] cc:MARK ANTHONY VINES M.D. >
== END 2016-09-29 12:15 | disposition home or self-care (01) | DRG 775 ==
LOC: LR 22:39 → 2S 09-27 17:45
PROVIDERS: ADMIT Specialist; ATTEND Specialist
PROC: 3E0P7GC Introduction of Other Therapeutic Substance into Female Reproductive, Via Natural or Artificial Opening (ICD-10-PCS; 2016-09-26)
PROC: 4A1HXCZ Monitoring of Products of Conception, Cardiac Rate, External Approach (ICD-10-PCS; 2016-09-26)
PROC: 10E0XZZ Delivery of Products of Conception, External Approach (ICD-10-PCS; principal; 2016-09-27)
PROC: 10907ZC Drainage of Amniotic Fluid, Therapeutic from Products of Conception, Via Natural or Artificial Opening (ICD-10-PCS; 2016-09-27)
DX: O11.4 Pre-existing hypertension with pre-eclampsia, complicating childbirth (principal); O24.425 Gestational diabetes mellitus in childbirth, controlled by oral hypoglycemic drugs; Z3A.37 37 weeks gestation of pregnancy; Z37.0 Single live birth; Z87.891 Personal history of nicotine dependence
CPT/HCPCS: 36415; 80053; 80307; 81005; 83615; 84550; 85025; 85027; 86592; 86850; 86900; 86901; J0360; J2590; J3490

== ENCOUNTER 2016-10-28 10:07 | Emergency (ER) | payer BC, MEDICAID ==
[2016-10-28] MEDS ORDERED: LORATADINE 10 MG TABLET PO ONE (10:30)
[2016-10-28] MEDS ORDERED: FAMOTIDINE 20 MG TABLET PO ONE (10:30)
[2016-10-28] MEDS ORDERED: METHYLPREDNISOLONE INJ 125 MG/2 ML SDV IV ONE (10:30)
--- NOTE | 2016-10-28 10:36 | ER Document Report ---
ED Allergic Reaction - General Chief Complaint: Eye Problem Stated Complaint: SWOLLEN EYES TRAVEL OUTSIDE OF THE [place] IN LAST 30 DAYS: No - HPI Patient complains to provider of: eye swelling and lip swelling with scrathy throat for 5 days Onset: Other - 5 days Onset/Duration: Gradual Quality of pain: No pain Severity: None Pain Level: Denies Identified cause: Yes - nuts-cashews and pistachios Food exposure: Nuts - cashews and pistachios Associated symptoms: None Similar symptoms previously: Yes - two times previously which she states she had eaten cashews Recently seen / treated by doctor: No - Related Data Allergies/Adverse Reactions: No Known Allergies Allergy (Verified 09/25/16 19:00) Home Medications: Current Home Medications Escitalopram Oxalate [Lexapro] 10 mg PO DAILY 10/28/16 [History] Lisinopril 40 mg PO BID 10/28/16 [History] Past Medical History - Social History Smoking Status: Current Every Day Smoker Family History: Reviewed & Not Pertinent Patient has suicidal ideation: No Patient has homicidal ideation: No - Past Medical History Cardiac Medical History: Reports: Hx Hypertension Pulmonary Medical History: Reports: Hx Asthma Neurological Medical History: Reports: Hx Migraine Endocrine Medical History: Reports: Hx Diabetes Mellitus Type 2 Renal/ Medical History: Reports: Hx Ovarian Cysts. Denies: Hx Peritoneal Dialysis Psychiatric Medical History: Reports: Hx Attention Deficit Hyperactivity Disorder - add, Hx Depression - Immunizations Hx Diphtheria, Pertussis, Tetanus Vaccination: Yes Review of Systems - Review of Systems Constitutional: See HPI EENT: See HPI Cardiovascular: No symptoms reported Respiratory: No symptoms reported Skin: See HPI -: Yes All other systems reviewed and negative Physical Exam - Vital signs Vitals: Temp Pulse Resp BP Pulse Ox 98.5 F 82 16 155/108 H 99 10/28/16 10:11 10/28/16 10:11 10/28/16 10:11 10/28/16 10:11 10/28/16 10:11 - Notes Notes: PHYSICAL EXAM GENERAL: Alert, interacts well. HEAD: Normocephalic, atraumatic. EYES: Pupils equal, round, and reactive to light. Extraocular movements intact. ENT: Oral mucosa moist, tongue midline. NECK: Full range of motion. Supple. Trachea midline. LUNGS: Clear to auscultation bilaterally, no wheezes, rales, or rhonchi. No respiratory distress. HEART: Regular rate and rhythm. No murmurs, gallops, or rubs. ABDOMEN: Soft, nondistended, nontender. No guarding, rebound, or rigidity.. Bowel sounds present in all 4 quadrants. EXTREMITIES: Moves all 4 extremities spontaneously. No edema, radial and dorsalis pedis pulses 2/4 bilaterally. No cyanosis. NEUROLOGICAL: Alert and oriented x4. Normal speech. PSYCH: Normal affect, normal mood. SKIN: Warm, dry, normal turgor. No rashes or lesions noted. Course - Re-evaluation Re-evalutation: 10/28/16 10:45 Patient presents with symptoms consistent with an allergic reaction without anaphylaxis. Vitals otherwise within normal limits at time of arrival. No respiratory, GI, cardiovascular, or oral pharyngeal symptoms. Will recommend ongoing antihistamine therapy as an outpatient. At this time will discharge with return precautions and follow-up recommendations. Verbal discharge instructions given a the bedside and opportunity for questions given. Medication warnings reviewed. Patient is in agreement with this plan and has verbalized understanding of return precautions and the need for primary care follow-up in the next 24-72 hours. - Vital Signs Vital signs: Temp Pulse Resp BP Pulse Ox 98.5 F 82 16 155/108 H 99 10/28/16 10:11 10/28/16 10:11 10/28/16 10:11 10/28/16 10:11 10/28/16 10:11 Discharge - Discharge Clinical Impression: Allergic reaction Qualifiers: Encounter type: initial encounter Qualified Code(s): T78.40XA - Allergy, unspecified, initial encounter Condition: Good Disposition: HOME, SELF-CARE Additional Instructions: Please avoid tree nuts: Tree nuts include, but are not limited to, almonds, [place] nuts, cashews, chestnuts, filberts/hazelnuts, macadamia nuts, pecans, pistachios, pine nuts, and walnuts. Tree nut allergies are distinct from peanut allergy, as peanuts are legumes, whereas a tree nut is a hard-shelled fruit. ACUTE ALLERGIC REACTION: Your symptoms are due to an allergic reaction. Allergy can cause hives, swelling of the hands, feet, and face, hoarseness, and difficulty swallowing or breathing. It may be due to exposure to medication, animal dander, foods, infection, or insect bites. Medication is a common cause, even when prior use of this same medication caused no problems. Acute treatment may include adrenalin and antihistamines. Usually, the specific allergic agent can't be identified unless repeated episodes occur. Home treatment includes the following: (1) Stop any suspicious medications. This will be discussed with you. (2) Oral antihistamines for the next four to five days. Example, diphenhydramine (Benadryl) every four hours. (3) You may also use cimetidine (Tagamet), ranitidine (Zantac), or famotidine ( Pepcid) every four hours if diphenhydramine is not controlling itching and hives. (4) Avoid aspirin until the hives completely disappear. (5) Avoid hot baths or showers until the hives are completely gone. Call the doctor if faintness, difficulty swallowing, tightness in the chest , or wheezing occurs. STEROID MEDICATION INJECTION: You have been given an injection of medicine of the cortisone/steroid class. This medication is used to control inflammation or allergy. It is often continued as a pill for a short period of time, until the acute process subsides. There are usually no side effects from short-term use of cortisone-like medications. Some persons feel an increased sense of well-being and are not sleepy at bedtime. Long-term use of cortisone medications is best avoided, unless required for a severe condition. If your condition does not remit, or relapses after the course of corticosteroid medication, you should consult your physician. STEROID MEDICATION: You have been given a medicine of the cortisone/steroid class. This medication is used to control inflammation or allergy. It is usually only given for a short period of time, until the acute process subsides. There are usually no side effects from short-term use of cortisone-like medications. Some persons feel an increased sense of well-being and are not sleepy at bedtime. Long-term use of cortisone medications is best avoided, unless required for a severe condition. If your condition does not remit, or relapses after the course of corticosteroid medication, you should consult your physician. ACID-SUPPRESSING MEDICATION: You have a prescription for medicine which reduces the stomach's secretion of acid. Examples include Zantac, Tagament, and Pepcid. These drugs are often used to allow healing of ulcers or esophagitis. They may be needed to prevent recurrence of ulcers in some patients, or to prevent damage from acid reflux in the esophagus. Take all medication as prescribed, even after the pain is gone. Regular antacids may be added as needed if you have symptoms while taking this medicine. These medications sometimes are prescribed for allergic reactions because they have anti-histaminic effects and relieve the rash and itching of the reaction. There are usually no side effects from this medication. But, in rare cases and particularly in the elderly, serious problems can occur. Contact your doctor if there is fever, rash, hallucinations, confusion, or unusual bruising. Contact your doctor at once if you develop lightheadedness, black or bloody stool, or bloody vomitus. ANTIHISTAMINES: An antihistamine has been given and/or prescribed to control your symptoms. Antihistamines are used for many reasons, including itching, watering eyes, runny nose, allergic swelling, hives, and insect stings. Antihistamines may cause drowsiness, especially with the first dose. Do not operate machinery or drive while under the effects of the medication. Other common side effects include dry mouth and eyes. In older persons, antihistamines can occasionally cause urinary retention, constipation, and trouble focusing the eyes. Do not combine the medication with alcohol, or with any other medication without talking to your doctor. USE OF DIPHENHYDRAMINE: The use of diphenhydramine (Benadryl) has been recommended to control allergic symptoms. The 25 mg strength is available over- the-counter, as well as the elixir. This antihistamine is used for many symptoms. It's useful for itching, watering eyes and nose, allergic swelling, hives, and insect stings. The medication can be repeated four times daily. Age Elixir (12.5 mg/tsp) 25 mg pill 2-3 yr 1/2 tsp 4-8 yr 1 tsp 9-14 yr 2 tsp one tab adult 1-2 tabs Antihistamines may cause drowsiness, especially with the first dose. Do not operate machinery or drive while under the effects of the medication. Do not combine the medication with alcohol, or with any other medication without talking to your doctor. FOLLOW-UP CARE: If you have been referred to a physician for follow-up care, call the physician s office for an appointment as you were instructed or within the next two days. If you experience worsening or a significant change in your symptoms, notify the physician immediately or return to the Emergency Department at any time for re-evaluation. Prescriptions: Methylprednisolone [Medrol Dosepack (4 mg/Tab) 21 Tab/Dosepak] 4 mg PO ASDIR PRN #21 tab.ds.pk PRN Reason: Forms: Elevated Blood Pressure Referrals: [facility] [Provider Group] - Follow up in 3-5 days (Follow up for allergy testing)
[2016-10-28 10:44] VITALS: BP 165/107
== END 2016-10-28 10:48 | disposition home or self-care (01) ==
LOC: ER 10:07
DX: T78.40XA Allergy, unspecified, initial encounter (principal); X58.XXXA Exposure to other specified factors, initial encounter; I10 Essential (primary) hypertension; E11.9 Type 2 diabetes mellitus without complications; F17.200 Nicotine dependence, unspecified, uncomplicated; Z91.018 Allergy to other foods
CPT/HCPCS: 99283; 96374; J2930

== ENCOUNTER 2017-03-04 01:02 | Emergency (ER) | payer BC, MEDICAID ==
--- NOTE | 2017-03-04 02:30 | ER Document Report ---
ED GI/ - General Chief Complaint: Abdominal Pain Stated Complaint: STOMACH PAIN Time Seen by Provider: 03/04/17 01:39 Notes: 26 years old female presents today with sudden onset of midabdominal pain associated with nausea and vomited a few times as well as had loose stool 1. Nonradiating pain 10/10 in intensity, has come down to about 8/10 while in the ER. Denied any fever chills dysuria frequency urgency. Denies any vaginal discharge. Denies being . TRAVEL OUTSIDE OF THE [place] IN LAST 30 DAYS: No - Related Data Allergies/Adverse Reactions: No Known Allergies Allergy (Verified 09/25/16 19:00) Past Medical History - Social History Smoking Status: Current Every Day Smoker Chew tobacco use (# tins/day): No Frequency of alcohol use: None Drug Abuse: None Family History: Reviewed & Not Pertinent Patient has suicidal ideation: No Patient has homicidal ideation: No - Past Medical History Cardiac Medical History: Reports: Hx Hypertension Pulmonary Medical History: Reports: Hx Asthma Neurological Medical History: Reports: Hx Migraine Endocrine Medical History: Reports: Hx Diabetes Mellitus Type 2 Renal/ Medical History: Reports: Hx Ovarian Cysts. Denies: Hx Peritoneal Dialysis Psychiatric Medical History: Reports: Hx Attention Deficit Hyperactivity Disorder - add, Hx Depression - Immunizations Hx Diphtheria, Pertussis, Tetanus Vaccination: Yes Review of Systems - Review of Systems Notes: REVIEW OF SYSTEMS: CONSTITUTIONAL : Denies fever, chills, or sweats. Denies recent illness. EENT: Denies eye, ear, throat, or mouth pain or symptoms. Denies nasal or sinus congestion or discharge. Denies throat, tongue, or mouth swelling or difficulty swallowing. CARDIOVASCULAR: Denies chest pain. Denies palpitations or racing or irregular heart beat. Denies ankle edema. RESPIRATORY: Denies cough, cold, or chest congestion. Denies shortness of breath, difficulty breathing, or wheezing. GASTROINTESTINAL: GENITOURINARY: Denies difficulty urinating, painful urination, burning, frequency, blood in urine, or discharge. FEMALE GENITOURINARY: Denies vaginal bleeding, heavy or abnormal periods, irregular periods. Denies vaginal discharge or odor. MUSCULOSKELETAL: Denies back or neck pain or stiffness. Denies joint pain or swelling. SKIN: Denies rash, lesions or sores. HEMATOLOGIC : Denies easy bruising or bleeding. LYMPHATIC: Denies swollen, enlarged glands. NEUROLOGICAL: Denies confusion or altered mental status. Denies passing out or loss of consciousness. Denies dizziness or lightheadedness. Denies headache. Denies weakness or paralysis or loss of use of either side. Denies problems with gait or speech. Denies sensory loss, numbness, or tingling. Denies seizures. PSYCHIATRIC: Denies anxiety or stress. Denies depression, suicidal ideation, or homicidal ideation. ALL OTHER SYSTEMS REVIEWED AND NEGATIVE. PHYSICAL EXAMINATION: GENERAL: Well-appearing, well-nourished and in no acute distress. HEAD: Atraumatic, normocephalic. EYES: Pupils equal round and reactive to light, extraocular movements intact, conjunctiva are normal. ENT: Nares patent, oropharynx clear without exudates. Moist mucous membranes. NECK: Normal range of motion, supple without lymphadenopathy LUNGS: Breath sounds clear to auscultation bilaterally and equal. No wheezes rales or rhonchi. HEART: Regular rate and rhythm without murmurs ABDOMEN: Soft, diffuse abdominal tenderness , nondistended abdomen. No guarding , no rebound. No masses appreciated. Female : deferred Musculoskeletal: Normal range of motion, no pitting or edema. No cyanosis. NEUROLOGICAL: Cranial nerves grossly intact. Normal speech, normal gait. Normal sensory, motor exams PSYCH: Normal mood, normal affect. SKIN: Warm, Dry, normal turgor, no rashes or lesions noted. Dictation was performed using [employer] voice recognition software morbidly obese Physical Exam - Vital signs Vitals: Temp Pulse Resp BP Pulse Ox 99.1 F 95 22 H 175/101 H 99 03/04/17 01:11 03/04/17 01:11 03/04/17 01:11 03/04/17 01:11 03/04/17 01:11 Course - Re-evaluation Re-evalutation: 03/04/17 04:10 Initially urine beta-hCG came back positive, therefore ultrasound of the abdomen and pelvis was done which came back as negative for any intrauterine . Subsequently serum beta-hCG also came back negative. This was informed to the patient. - Vital Signs Vital signs: Temp Pulse Resp BP Pulse Ox 99.1 F 95 22 H 175/101 H 99 03/04/17 01:11 03/04/17 01:11 03/04/17 01:11 03/04/17 01:11 03/04/17 01:11 - Laboratory Laboratory results interpreted by me: 03/04/17 02:00 Urine HCG, Qual POSITIVE H - Diagnostic Test Radiology results interpreted by me: 03/04/17 04:57 Pelvic ultrasound as well as KUB was reviewed. KUB indicated retained stool Discharge - Discharge Clinical Impression: Abdominal pain Qualifiers: Abdominal location: left lower quadrant Qualified Code(s): R10.32 - Left lower quadrant pain Fecal retention Qualifiers: Constipation type: slow transit constipation Qualified Code(s): K59.01 - Slow transit constipation Condition: Fair Disposition: HOME, SELF-CARE Instructions: Abdominal Pain ([facility]), Bulk Laxatives Prescriptions: Dicyclomine HCl [Bentyl 20 mg Tablet] 20 mg PO QID PRN #14 tablet PRN Reason: Ketorolac Tromethamine 10 mg PO TID PRN #10 tablet PRN Reason: Lactulose 20 gm PO BID #120 ml
[2017-03-04] MEDS ORDERED: ACETAMINOPHEN 325 MG TABLET PO ONE (03:17)
--- NOTE | 2017-03-04 03:48 | RADIOLOGY REPORT (SQ) ---
EXAM DESCRIPTION: U/S [id number] TRNABD 1GES W/ODOP CLINICAL HISTORY: 26 years Female, and abdominal pain COMPARISON: None. TECHNIQUE: Real-time sonographic images of the pelvis for first trimester obstetrical ultrasound obtained with transabdominal imaging. FINDINGS: Uterus measures 9.8 x 8.1 x 5.7 cm. The cervix measures 2.7 cm in length. Endometrial thickness of 0.9 cm. IUD identified. No intrauterine identified. The right ovary measures 3.4 x 2.9 x 2.3 cm. The left ovary is not identified. Color Doppler images demonstrate flow within the right ovary. IMPRESSION: 1. No intrauterine identified. Differential considerations include early , miscarriage, or ectopic . No other sonographic evidence of ectopic at this time. No free pelvic fluid. Close continued clinical, laboratory, and sonographic follow-up recommended. 2. IUD identified.
--- NOTE | 2017-03-04 04:43 | RADIOLOGY REPORT (SQ) ---
EXAM DESCRIPTION: KUB/ABDOMEN (SINGLE VIEW) CLINICAL HISTORY: Abdominal pain COMPARISON: None. FINDINGS: Single view of the abdomen. Air-filled loops of nondilated large and small bowel. IUD identified. No acute osseous abnormality. IMPRESSION: Nonobstructive bowel gas pattern. IUD identified in the pelvis.
[2017-03-04 05:04] VITALS: BP 125/84
== END 2017-03-04 05:13 | disposition home or self-care (01) ==
LOC: ER 01:02
DX: K59.01 Slow transit constipation (principal); R10.32 Left lower quadrant pain; R11.2 Nausea with vomiting, unspecified; R19.7 Diarrhea, unspecified; F17.200 Nicotine dependence, unspecified, uncomplicated
CPT/HCPCS: 36415; 74000; 76801; 81025; 84702; 99284

== ENCOUNTER 2017-05-26 19:01 | Emergency (ER) | payer BC, MEDICAID ==
[2017-05-26 19:10] VITALS: BP 150/102
--- NOTE | 2017-05-26 19:20 | ER Document Report ---
ED Oral Problem - General Chief Complaint: Sore Throat Stated Complaint: THROAT PROBLEM Time Seen by Provider: 05/26/17 19:15 Mode of Arrival: Ambulatory Information source: Patient TRAVEL OUTSIDE OF THE [place] IN LAST 30 DAYS: No - HPI Patient complains to provider of: Sore throat - pt with c/o sore throat and swollen gland on R side of neck for the past 2 days - Related Data Allergies/Adverse Reactions: No Known Allergies Allergy (Verified 05/26/17 19:15) Past Medical History - Social History Smoking Status: Current Every Day Smoker Cigarette use (# per day): Yes Chew tobacco use (# tins/day): No Smoking Education Provided: Yes Frequency of alcohol use: None Drug Abuse: None Family History: Reviewed & Not Pertinent Patient has suicidal ideation: No Patient has homicidal ideation: No - Past Medical History Cardiac Medical History: Reports: Hx Hypertension Pulmonary Medical History: Reports: Hx Asthma Neurological Medical History: Reports: Hx Migraine Endocrine Medical History: Reports: Hx Diabetes Mellitus Type 2 Renal/ Medical History: Reports: Hx Ovarian Cysts. Denies: Hx Peritoneal Dialysis Psychiatric Medical History: Reports: Hx Attention Deficit Hyperactivity Disorder - add, Hx Depression - Immunizations Hx Diphtheria, Pertussis, Tetanus Vaccination: Yes Review of Systems - Review of Systems Constitutional: No symptoms reported EENT: See HPI, Throat pain Cardiovascular: No symptoms reported Respiratory: No symptoms reported Gastrointestinal: No symptoms reported -: Yes All other systems reviewed and negative Physical Exam - Vital signs Vitals: Temp Pulse Resp BP Pulse Ox 98.9 F 91 18 150/102 H 98 05/26/17 19:09 05/26/17 19:09 05/26/17 19:05/26/17 19:09 05/26/17 19:09 - General General appearance: Appears well In distress: None - HEENT Head: Normocephalic Ears: Normal Tympanic membrane: Normal Sinus: Normal Mouth/Lips: Normal Pharynx: Erythema Neck: Anterior cervical chain - R > L - Respiratory Respiratory status: No respiratory distress Breath sounds: Normal - Cardiovascular Rhythm: Regular Heart sounds: Normal auscultation Course - Vital Signs Vital signs: Temp Pulse Resp BP Pulse Ox 98.9 F 91 18 150/102 H 98 05/26/17 19:09 05/26/17 19:09 05/26/17 19:09 05/26/17 19:09 05/26/17 19:09 Discharge - Discharge Clinical Impression: Pharyngitis Qualifiers: Pharyngitis/tonsillitis etiology: unspecified etiology Qualified Code(s): J02.9 - Acute pharyngitis, unspecified Condition: Stable Disposition: HOME, SELF-CARE Instructions: Sore Throat ([facility]), Penicillin V K ([facility]) Additional Instructions: rest, take meds as prescribed, return if worse Prescriptions: Amoxicillin 400 mg PO BID #100 ml Amoxicillin 400 mg PO BID #100 ml Referrals: KATHI BELTRAN MD [ACTIVE STAFF] - Follow up as needed
== END 2017-05-26 19:16 | disposition home or self-care (01) ==
LOC: ER 19:01
DX: J02.9 Acute pharyngitis, unspecified (principal); F17.210 Nicotine dependence, cigarettes, uncomplicated; I10 Essential (primary) hypertension; E11.9 Type 2 diabetes mellitus without complications; J45.909 Unspecified asthma, uncomplicated
CPT/HCPCS: 99282

== ENCOUNTER 2018-08-14 02:51 | Emergency (ER) | payer BC, MEDICAID ==
--- NOTE | 2018-08-14 04:53 | ER Document Report ---
ED General - General Chief Complaint: Urinary Problem Stated Complaint: URINARY PROBLEMS Time Seen by Provider: 08/14/18 04:15 Notes: 28 female with no past medical history presents to the emergency department with chief complaint of concern for a UTI. She says that she is been having some low back pain, lower abdominal pain, urinary frequency she denies fevers or headaches,. No nausea or vomiting, no constipation, dysuria or urgency, no abnormal vaginal discharge. No other complaints TRAVEL OUTSIDE OF THE [place] IN LAST 30 DAYS: No - Related Data Allergies/Adverse Reactions: No Known Allergies Allergy (Verified 05/26/17 19:15) Past Medical History - Social History Smoking Status: Unknown if Ever Smoked Family History: Reviewed & Not Pertinent Patient has suicidal ideation: No Patient has homicidal ideation: No - Past Medical History Cardiac Medical History: Reports: Hx Hypertension Pulmonary Medical History: Reports: Hx Asthma Neurological Medical History: Reports: Hx Migraine Endocrine Medical History: Reports: Hx Diabetes Mellitus Type 2 Renal/ Medical History: Reports: Hx Ovarian Cysts. Denies: Hx Peritoneal Dialysis Psychiatric Medical History: Reports: Hx Attention Deficit Hyperactivity Disorder - add, Hx Depression - Immunizations Hx Diphtheria, Pertussis, Tetanus Vaccination: Yes Review of Systems - Review of Systems Constitutional: See HPI EENT: No symptoms reported Cardiovascular: No symptoms reported Respiratory: No symptoms reported Gastrointestinal: See HPI Genitourinary: See HPI Female Genitourinary: See HPI Musculoskeletal: No symptoms reported Skin: No symptoms reported Hematologic/Lymphatic: No symptoms reported Neurological/Psychological: No symptoms reported Physical Exam - Vital signs Vitals: Temp Pulse Resp BP Pulse Ox 98.5 F 85 16 176/112 H 95 08/14/18 03:01 08/14/18 03:01 08/14/18 03:01 08/14/18 03:01 08/14/18 03:01 - Notes Notes: PHYSICAL EXAMINATION: Reviewed vital signs and charting by RN GENERAL: Well-appearing, well-nourished and in no acute distress. HEAD: Atraumatic, normocephalic. No scalp deformity LUNGS: Breath sounds present, equal, and clear to auscultation bilaterally. No wheezes, rales, or rhonchi. HEART: Regular rate and rhythm without murmurs, rubs, or gallops. 2+ peripheral pulses. Normal capillary refill. ABDOMEN: Soft, suprapubic tenderness, nondistended. Normoactive bowel sounds. No guarding, no rebound. No masses appreciated. BACK: Mild right CVAT PELVC: Deferred. EXTREMITIES: Normal range of motion, no pitting or edema. No cyanosis. SKIN: Warm, dry, normal turgor, no rashes or lesions noted. Course - Re-evaluation Re-evalutation: 08/14/18 05:25 Urinalysis consistent with a urinary tract infection. I will give her first dose of Keflex here in the emergency department and sent her home with a prescription. Patient is afebrile and her presentation is most consistent with a simple acute cystitis. She is stable for discharge. - Vital Signs Vital signs: Temp Pulse Resp BP Pulse Ox 98.5 F 85 16 176/112 H 95 08/14/18 03:01 08/14/18 03:01 08/14/18 03:01 08/14/18 03:01 08/14/18 03:01 Discharge - Discharge Clinical Impression: Urinary tract infection Qualifiers: Urinary tract infection type: acute cystitis Hematuria presence: with hematuria Qualified Code(s): N30.01 - Acute cystitis with hematuria Condition: Good Disposition: HOME, SELF-CARE Instructions: Cephalexin ([facility]), Urinary Tract Infection ([facility]) Additional Instructions: Your urine shows findings consistent with a urinary tract infection. Please take all the antibiotics as directed even if your symptoms have improved. Please follow-up with your primary care physician as needed. Return to emergency room if you develop fever >101F, persistent vomiting, become lethargic, have severe pain in your sides, or any other symptoms that are concerning to you. Prescriptions: Cephalexin Monohydrate [Keflex 500 mg Capsule] 500 mg PO BID 7 Days #14 capsule Forms: Return to Work, Special Work Note
[2018-08-14 04:55] LABS: APPEARANCE,URINE CLOUDY; BILIRUBIN,URINE NEGATIVE (NEGATIVE); COLOR,URINE YELLOW; GLUCOSE, URINE NEGATIVE (NEGATIVE); KETONES,URINE TRACE mg/dL (NEGATIVE); LEUKOCYTE ESTERASE,URINE LARGE (NEGATIVE); NITRITE,URINE NEGATIVE (NEGATIVE); PROTEIN,URINE 30 mg/dL (NEGATIVE); URINE SPECIFIC GRAVITY 1.024; UROBILINOGEN,URINE NEGATIVE mg/dL (<2.0)
[2018-08-14] MEDS ORDERED: CEPHALEXIN 500 MG CAPSULE PO ONE (05:26)
[2018-08-14 05:50] VITALS: BP 153/86
== END 2018-08-14 05:50 | disposition home or self-care (01) ==
LOC: ER 02:51
DX: N30.01 Acute cystitis with hematuria (principal); M54.5 Low back pain; R10.30 Lower abdominal pain, unspecified; R35.0 Frequency of micturition; I10 Essential (primary) hypertension; J45.909 Unspecified asthma, uncomplicated
CPT/HCPCS: 81001; 99283

== ENCOUNTER 2018-08-24 03:28 | Emergency (ER) | payer SELFPAY ==
--- NOTE | 2018-08-24 05:42 | ER Document Report ---
ED GI/ - General Chief Complaint: STD Exposure Stated Complaint: STD EXPOSURE Time Seen by Provider: 08/24/18 04:56 Notes: Patient is a 28-year-old female that comes to the emergency department for chief complaint of vaginal discharge, dysuria, and itchy rash around the buttocks/groin area, and an abnormal menstrual cycle. She states she wonders if she is bleeding and . She states she has Tavia in place. She denies abdominal pain, vomiting, fever, flank pain. She denies any surgeries, diagnosed medical problems, daily medications. TRAVEL OUTSIDE OF THE [place] IN LAST 30 DAYS: No - Related Data Allergies/Adverse Reactions: No Known Allergies Allergy (Verified 05/26/17 19:15) Past Medical History - General Information source: Patient - Social History Smoking Status: Never Smoker Frequency of alcohol use: None Drug Abuse: None Lives with: Family Family History: Reviewed & Not Pertinent - Past Medical History Cardiac Medical History: Reports: Hx Hypertension Pulmonary Medical History: Reports: Hx Asthma Neurological Medical History: Reports: Hx Migraine Endocrine Medical History: Reports: Hx Diabetes Mellitus Type 2 Renal/ Medical History: Reports: Hx Ovarian Cysts. Denies: Hx Peritoneal Dialysis Psychiatric Medical History: Reports: Hx Attention Deficit Hyperactivity Disorder - add, Hx Depression - Immunizations Hx Diphtheria, Pertussis, Tetanus Vaccination: Yes Review of Systems - Review of Systems Constitutional: No symptoms reported EENT: No symptoms reported Cardiovascular: No symptoms reported Respiratory: No symptoms reported Gastrointestinal: See HPI Genitourinary: See HPI Female Genitourinary: See HPI Musculoskeletal: No symptoms reported Skin: No symptoms reported Hematologic/Lymphatic: No symptoms reported Neurological/Psychological: No symptoms reported Physical Exam - Vital signs Vitals: Temp Pulse Resp BP Pulse Ox 98.7 F 88 18 160/113 H 95 08/24/18 03:37 08/24/18 03:37 08/24/18 03:37 08/24/18 03:37 08/24/18 03:37 - Notes Notes: GENERAL: Alert, interacts well. No acute distress. HEAD: Normocephalic, atraumatic. EYES: Pupils equal, round, and reactive to light. Extraocular movements intact. ENT: Oral mucosa moist, tongue midline. Oropharynx unremarkable. Airway patent. Nares patent, no nasal septal hematoma, TM's intact. NECK: Full range of motion. Supple. Trachea midline. LUNGS: Clear to auscultation bilaterally, no wheezes, rales, or rhonchi. No respiratory distress. HEART: Regular rate and rhythm. No murmur ABDOMEN: Soft, non-tender. No guarding or rigidity. Non-distended. Bowel sounds present in all 4 quadrants. GENITOURINARY: External vaginal exam is unremarkable. Speculum exam shows erythema of the cervix, moderate amount of greenish vaginal discharge, however no cervical motion tenderness or other concerning findings noted. Exam performed with Janet GARBER at bedside. EXTREMITIES: Moves all 4 extremities spontaneously. No edema, normal radial and dorsalis pedis pulses bilaterally. No cyanosis. BACK: no cervical, thoracic, lumbar midline tenderness. No saddle anesthesia, normal distal neurovascular exam. Moves all extremities in full range of motion. NEUROLOGICAL: Alert and oriented x3. Normal speech. Cranial nerves II through XII grossly intact. PSYCH: Normal affect, normal mood. SKIN: There are a few papules suggesting bug bites over the lower buttock area with some excoriation and dry skin surrounding. No vesicles, pustules, induration, fluctuance, abnormal erythema or tenderness noted. Course - Re-evaluation Re-evalutation: The rash over the lower buttocks in question appears to be bug bites. I do not see evidence of herpes, cellulitis, abscess, or other concerning findings. Abdominal exam is completely benign. Pelvic exam is suggestive of pelvic infection with greenish vaginal discharge but no cervical motion tenderness. No fever. Patency test negative. Urine unremarkable. Wet mount shows 3+ bacteria, 4+ white blood cells, suggestive of pelvic infection. Sanju with patient, she was to be discharged, she will be covered for pelvic infection, discussed follow-up and return precautions. She states understanding and agreement. - Vital Signs Vital signs: Temp Pulse Resp BP Pulse Ox 98.1 F 78 15 144/98 H 96 08/24/18 06:59 08/24/18 06:59 08/24/18 06:59 08/24/18 06:59 08/24/18 06:59 - Laboratory Laboratory results interpreted by me: 08/24/18 05:36 Ur Leukocyte Esterase TRACE H Discharge - Discharge Clinical Impression: Vaginal discharge, Dysuria Condition: Stable Disposition: HOME, SELF-CARE Additional Instructions: You are being treated for pelvic infection. Complete antibiotic prescription, avoid sexual intercourse for 1 week. Follow-up with primary care. Return to the emergency department for any concerning or worsening symptoms including fever, vomiting, developing abdominal pain, or any other concerning or worsening symptoms. Prescriptions: Metronidazole [Flagyl 500 mg Tablet] 500 mg PO BID 7 Days #14 tablet
[2018-08-24 05:55] LABS: APPEARANCE,URINE SLIGHTLY-CLOUDY; BILIRUBIN,URINE NEGATIVE (NEGATIVE); COLOR,URINE YELLOW; GLUCOSE, URINE NEGATIVE (NEGATIVE); KETONES,URINE NEGATIVE (NEGATIVE); LEUKOCYTE ESTERASE,URINE TRACE (NEGATIVE); NITRITE,URINE NEGATIVE (NEGATIVE); PROTEIN,URINE NEGATIVE (NEGATIVE); URINE SPECIFIC GRAVITY 1.017; UROBILINOGEN,URINE NEGATIVE mg/dL (<2.0)
[2018-08-24 06:26] LABS: RBCS (WET MOUNT) 1+ RBCS SEEN; T.VAGINALIS (WET MOUNT) NO TRICHOMONAS SEEN; WBCS (WET MOUNT) 4+ WBCS SEEN; YEAST (WET MOUNT) NO YEAST SEEN
[2018-08-24 06:27] LABS: BACTERIA (WET MOUNT) 3+ BACTERIA SEEN
[2018-08-24] MEDS ORDERED: CEFTRIAXONE INJ 250 MG VIAL IM ONE (06:46)
[2018-08-24] MEDS ORDERED: AZITHROMYCIN 250 MG TABLET PO ONE (06:46)
[2018-08-24] MEDS ORDERED: LIDOCAINE 1% INJ-PF (10 MG/ML) 30 ML SDV INJ ONE (06:46)
[2018-08-24 07:08] VITALS: BP 144/98
[2018-08-24 07:51] LABS: CHLAM PCR DETECTED (NOT DETECT); GON PCR NOT DETECTED (NOT DETECT)
== END 2018-08-24 07:08 | disposition home or self-care (01) ==
LOC: ER 03:28
DX: N89.8 Other specified noninflammatory disorders of vagina (principal); R30.0 Dysuria; R21 Rash and other nonspecific skin eruption; I10 Essential (primary) hypertension; E11.9 Type 2 diabetes mellitus without complications
CPT/HCPCS: 99283; 96372; 87210; 81025; 81001; 87491; 87591; J3490; J0696

== ENCOUNTER 2018-11-21 13:10 | Emergency (ER) | payer MEDICAID ==
[2018-11-21] MEDS ORDERED: VALACYCLOVIR HCL 500 MG TABLET PO ONE (13:16)
[2018-11-21] MEDS ORDERED: IBUPROFEN 800 MG TABLET PO ONE (13:16)
[2018-11-21 13:20] VITALS: BP 168/112
--- NOTE | 2018-11-21 13:30 | ER Document Report ---
ED GI/ - General Chief Complaint: STD Exposure Stated Complaint: VAGINAL ISSUE Time Seen by Provider: 11/21/18 13:14 Mode of Arrival: Ambulatory Information source: Patient Notes: 28-year-old female presented to ED for Valtrex for her genital herpes. Patient is alert oriented respirations regular and unlabored aching in full sentences. She does actually have an outbreak of genital herpes around her rectum. She states she had taken some medicine but they came right back because she did not take them on the left because they did not give her enough medicine from the health department. TRAVEL OUTSIDE OF THE [place] IN LAST 30 DAYS: No - HPI Patient complains to provider of: Other - Genital herpes around the rectum Onset: Other - States she had of a couple weeks ago she gets medically seen from the health department but they went away and came back Quality of pain: Sharp, Throbbing Severity at maximum: Moderate Severity in ED: Moderate Pain Level: 3 Vaginal bleeding (Compared to normal period): None Associated symptoms: Other - Genital herpes Exacerbated by: Walking Relieved by: Denies Similar symptoms previously: Yes Recently seen / treated by doctor: Yes - Related Data Allergies/Adverse Reactions: No Known Allergies Allergy (Verified 11/21/18 13:12) Past Medical History - General Information source: Patient - Social History Smoking Status: Current Some Day Smoker Cigarette use (# per day): Yes Smoking Education Provided: Yes - 4 minutes Frequency of alcohol use: None Lives with: Family Family History: Reviewed & Not Pertinent Patient has suicidal ideation: No Patient has homicidal ideation: No - Past Medical History Cardiac Medical History: Reports: Hx Hypertension Pulmonary Medical History: Reports: Hx Asthma EENT Medical History: Reports: None Neurological Medical History: Reports: Hx Migraine Endocrine Medical History: Reports: Hx Diabetes Mellitus Type 2 Renal/ Medical History: Reports: Hx Ovarian Cysts Malignancy Medical History: Reports: None GI Medical History: Reports: None Musculoskeletal Medical History: Reports None Skin Medical History: Reports None Psychiatric Medical History: Reports: Hx Attention Deficit Hyperactivity Disorder - add, Hx Depression Traumatic Medical History: Reports: None Infectious Medical History: Reports: None Surgical Hx: Negative Past Surgical History: Reports: None - Immunizations Hx Diphtheria, Pertussis, Tetanus Vaccination: Yes Review of Systems - Review of Systems Constitutional: No symptoms reported EENT: No symptoms reported Cardiovascular: No symptoms reported Respiratory: No symptoms reported Gastrointestinal: No symptoms reported Genitourinary: No symptoms reported Female Genitourinary: Other Musculoskeletal: No symptoms reported Skin: No symptoms reported Hematologic/Lymphatic: No symptoms reported Neurological/Psychological: No symptoms reported -: Yes All other systems reviewed and negative Physical Exam - Vital signs Vitals: Temp Pulse Resp BP Pulse Ox 98.1 F 77 16 168/112 H 100 11/21/18 13:15 11/21/18 13:15 11/21/18 13:15 11/21/18 13:15 11/21/18 13:15 Interpretation: Normal - General General appearance: Appears well, Alert - HEENT Head: Normocephalic, Atraumatic Eyes: Normal Pupils: PERRL - Respiratory Respiratory status: No respiratory distress Chest status: Nontender Breath sounds: Normal Chest palpation: Normal - Cardiovascular Rhythm: Regular Heart sounds: Normal auscultation Murmur: No - Abdominal Inspection: Normal Distension: No distension Bowel sounds: Normal Tenderness: Nontender Organomegaly: No organomegaly - Back Back: Normal, Nontender - Extremities General upper extremity: Normal inspection, Nontender, Normal color, Normal ROM, Normal temperature General lower extremity: Normal inspection, Nontender, Normal color, Normal ROM, Normal temperature, Normal weight bearing. No: Merly's sign - Neurological Neuro grossly intact: Yes Cognition: Normal Orientation: AAOx4 [place] Coma Scale Eye Opening: Spontaneous [place] Coma Scale Verbal: Oriented [place] Coma Scale Motor: Obeys Commands [place] Coma Scale Total: 15 Speech: Normal Motor strength normal: LUE, RUE, LLE, RLE Sensory: Normal - Psychological Associated symptoms: Normal affect, Normal mood - Skin Skin Temperature: Warm Skin Moisture: Dry Skin Color: Normal Location of irregularity: Other Character of irregularity: Vesicular Irregularity with: Tenderness Course - Re-evaluation Re-evalutation: 11/21/18 13:39 Patient stated she needed Valtrex and metformin but her Accu-Chek was 104 so I did not give her the prescription for metformin I did give her the prescription for Valtrex. I did tell her she needed to go to follow-up with a primary doctor or [facility] for the blood pressure medicine. Patient verbalized understanding and agreement with treatment plan and patient was discharged home - Vital Signs Vital signs: Temp Pulse Resp BP Pulse Ox 98.1 F 77 16 168/112 H 100 11/21/18 13:15 11/21/18 13:15 11/21/18 13:15 11/21/18 13:15 11/21/18 13:15 Discharge - Discharge Clinical Impression: Genital herpes Qualifiers: Herpes simplex infection site: perianal skin Qualified Code(s): A60.1 - Herpesviral infection of perianal skin and rectum Condition: Stable Disposition: HOME, SELF-CARE Instructions: Genital Herpes ([facility]) Additional Instructions: Valtrex Valtrex is used to treat infections caused by the Herpes family of viruses. It's available as capsules or ointment. Valtrex is most effective if started at the first sign of the viral outbreak. It can decrease the severity and duration of symptoms. However, it doesn't eliminate the virus from the body completely. If you're prone to repeated outbreaks of herpes, you'll continue to have attacks. Apply ointment with a disposable glove or finger-cot to avoid spreading the virus with your finger. If pills have been prescribed, take them for the full recommended course. Occasionally, mild nausea or headaches may occur. Call the doctor if you develop wheezing, itching, rash, shortness of breath, or lightheadedness. Ibuprofen Ibuprofen is an excellent, safe drug for pain control. In addition, it has potent antiinflammatory effects which are beneficial, especially in the treatment of injuries, arthritis, or tendonitis. It's best to take ibuprofen with food. Persons with ulcer disease or allergy to aspirin should notify their physician of this before taking ibuprofen. Take the medication exactly as prescribed. Don't take additional doses unless instructed to do so by your doctor. If you develop wheezing, shortness of breath, hives, faintness, stomach pain, vomiting, or dark black stools, return for re-evaluation at once. FOLLOW-UP CARE: If you have been referred to a physician for follow-up care, call the physicians office for an appointment as you were instructed or within the next two days. If you experience worsening or a significant change in your symptoms, notify the physician immediately or return to the Emergency Department at any time for re-evaluation. Prescriptions: Valacyclovir HCl [Valtrex] 1,000 mg PO TID #30 tablet Forms: Elevated Blood Pressure, Smoking Cessation Education
== END 2018-11-21 13:38 | disposition home or self-care (01) ==
LOC: ER 13:10
DX: A60.1 Herpesviral infection of perianal skin and rectum (principal); Z79.899 Other long term (current) drug therapy; F17.210 Nicotine dependence, cigarettes, uncomplicated; I10 Essential (primary) hypertension; J45.909 Unspecified asthma, uncomplicated; E11.9 Type 2 diabetes mellitus without complications
CPT/HCPCS: 99406; 99283; 82962; J3490 ×2

== ENCOUNTER 2018-12-01 02:53 | Emergency (ER) | payer SELFPAY ==
[2018-12-01 03:09] VITALS: BP 168/102
[2018-12-01] MEDS ORDERED: AZITHROMYCIN 1 GM SUSP PACKET PO ONE (04:21)
[2018-12-01] MEDS ORDERED: HYDROCODONE/ACETAMINOPHEN 10-325 MG TABLET PO ONE (04:21)
[2018-12-01] MEDS ORDERED: CEFTRIAXONE INJ 250 MG VIAL IM ONE (04:21)
[2018-12-01] MEDS ORDERED: DOXYCYCLINE HYCLATE 100 MG TABLET PO ONE (04:22)
--- NOTE | 2018-12-01 04:27 | ER Document Report ---
ED General - General Chief Complaint: Abscess Stated Complaint: POSS CYST Time Seen by Provider: 12/01/18 03:14 Mode of Arrival: Ambulatory Information source: Patient Notes: Chief complaint: Vulvovaginal pain History of complain:( obtained from----patient) 28 years old female recently diagnosed with herpes, started on Valtrex, presents today with persistent pain over the right vulvovaginal region with swelling and tenderness. Denies any vaginal discharge. Denies any other constitutional symptoms. Onset: As above Duration: Last 2 to 3 days Severity: Moderate to severe Quality: Sharp Context: Possibly STD Exacerbating factor and relieving factors: Walking okay a few minutes REVIEW OF SYSTEMS: CONSTITUTIONAL : Denies fever, chills, or sweats. Denies recent illness. EENT: Denies eye, ear, throat, or mouth pain or symptoms. Denies nasal or sinus congestion or discharge. Denies throat, tongue, or mouth swelling or difficulty swallowing. CARDIOVASCULAR: Denies chest pain. Denies palpitations or racing or irregular heart beat. Denies ankle edema. RESPIRATORY: Denies cough, cold, or chest congestion. Denies shortness of breath, difficulty breathing, or wheezing. GASTROINTESTINAL: Denies distention. Denies nausea, vomiting, or diarrhea. Denies blood in vomitus, stools, or per rectum. Denies black, tarry stools. Denies constipation. GENITOURINARY: Denies difficulty urinating, painful urination, burning, frequency, blood in urine, or discharge. FEMALE GENITOURINARY: Denies vaginal bleeding, heavy or abnormal periods, irregular periods. Denies vaginal discharge or odor. MUSCULOSKELETAL: Denies back or neck pain or stiffness. Denies joint pain or swelling. SKIN: Denies rash, lesions or sores. HEMATOLOGIC : Denies easy bruising or bleeding. LYMPHATIC: Denies swollen, enlarged glands. NEUROLOGICAL: Denies confusion or altered mental status. Denies passing out or loss of consciousness. Denies dizziness or lightheadedness. Denies headache. Denies weakness or paralysis or loss of use of either side. Denies problems with gait or speech. Denies sensory loss, numbness, or tingling. Denies seizures. PSYCHIATRIC: Denies anxiety or stress. Denies depression, suicidal ideation, or homicidal ideation. ALL OTHER SYSTEMS REVIEWED AND NEGATIVE. PHYSICAL EXAMINATION: GENERAL: Well-appearing, well-nourished and in no acute distress. Obese HEAD: Atraumatic, normocephalic. ABDOMEN: Soft, nontender, nondistended abdomen. No guarding, no rebound. No masses appreciated. Examination of genitals-examination of the vulvovaginal region on the right labia majora superiorly there is a erythematous lesion with underlying induration. Tenderness. No fluctuant mass. Musculoskeletal: Normal range of motion, no pitting or edema. No cyanosis. NEUROLOGICAL: Cranial nerves grossly intact. Normal speech, normal gait. Normal sensory, motor exams PSYCH: Normal mood, normal affect. SKIN: Warm, Dry, normal turgor, no rashes or lesions noted. Dictation was performed using [employer] voice recognition software TRAVEL OUTSIDE OF THE [place] IN LAST 30 DAYS: No - HPI Notes: Dictated - Related Data Allergies/Adverse Reactions: No Known Allergies Allergy (Verified 11/21/18 13:12) Past Medical History - Social History Smoking Status: Unknown if Ever Smoked Frequency of alcohol use: Rare Lives with: Family Family History: Reviewed & Not Pertinent - Past Medical History Cardiac Medical History: Reports: Hx Hypertension Pulmonary Medical History: Reports: Hx Asthma Neurological Medical History: Reports: Hx Migraine Endocrine Medical History: Reports: Hx Diabetes Mellitus Type 2 Renal/ Medical History: Reports: Hx Ovarian Cysts. Denies: Hx Peritoneal Dialysis Psychiatric Medical History: Reports: Hx Attention Deficit Hyperactivity Disorder - add, Hx Depression - Immunizations Hx Diphtheria, Pertussis, Tetanus Vaccination: Yes Review of Systems - Review of Systems Notes: Dictated Physical Exam - Vital signs Vitals: Temp Pulse Resp BP Pulse Ox 98.6 F 72 16 168/102 H 98 12/01/18 03:06 12/01/18 03:06 12/01/18 03:06 12/01/18 03:06 12/01/18 03:06 - Notes Notes: Dictated Course - Re-evaluation Re-evalutation: 12/01/18 04:25 Given pain medicines and STD prophylaxis - Vital Signs Vital signs: Temp Pulse Resp BP Pulse Ox 98.6 F 72 16 168/102 H 98 12/01/18 03:06 12/01/18 03:06 12/01/18 03:06 12/01/18 03:06 12/01/18 03:06 Discharge - Discharge Clinical Impression: Herpes genitalia Qualifiers: Herpes simplex infection site: vulvovaginitis Qualified Code(s): A60.04 - Herpesviral vulvovaginitis Condition: Fair Disposition: HOME, SELF-CARE Instructions: Genital Herpes ([facility]) Prescriptions: Doxycycline Hyclate 100 mg PO BID #14 capsule Hydrocodone/Acetaminophen [[place] 5-325 Tablet] 1 each PO TID #14 tablet
== END 2018-12-01 05:00 | disposition home or self-care (01) ==
LOC: ER 02:53
DX: A60.04 Herpesviral vulvovaginitis (principal); R10.2 Pelvic and perineal pain
CPT/HCPCS: 99283; Q0144

== ENCOUNTER 2018-12-07 12:12 | Emergency (ER) | payer BC ==
--- NOTE | 2018-12-07 12:25 | ER Document Report ---
ED Medical Screen (RME) - General Stated Complaint: URINARY ISSUES Time Seen by Provider: 12/07/18 12:16 Primary Care Provider: SHAYY YUSUF MD [ACTIVE STAFF] - Follow up as needed ESTEVAN BARTON MD [COMMUNITY BASED STAFF] - Follow up as needed Mode of Arrival: Ambulatory Notes: 28-year-old female presents emergency department with complaints of vaginal irritation and itchiness. Reports that she thinks she has a yeast infection. She reports she was treated for a UTI several days ago and is now having vaginal irritation and itchiness. Denies fever vomiting diarrhea. Denies pain with void. She is unsure what antibiotic she was prescribed. I have greeted and performed a rapid initial assessment of this patient. A comprehensive ED assessment and evaluation of the patient, analysis of test results and completion of the medical decision making process will be conducted by additional ED providers. Dictation of this chart was performed using voice recognition software; therefore, there may be some unintended grammatical errors. TRAVEL OUTSIDE OF THE [place] IN LAST 30 DAYS: No - Related Data Allergies/Adverse Reactions: No Known Allergies Allergy (Verified 11/21/18 13:12) Past Medical History - Past Medical History Cardiac Medical History: Reports: Hx Hypertension Pulmonary Medical History: Reports: Hx Asthma Neurological Medical History: Reports: Hx Migraine Endocrine Medical History: Reports: Hx Diabetes Mellitus Type 2 Renal/ Medical History: Reports: Hx Ovarian Cysts. Denies: Hx Peritoneal Dialysis Psychiatric Medical History: Reports: Hx Attention Deficit Hyperactivity Disorder - add, Hx Depression - Immunizations Hx Diphtheria, Pertussis, Tetanus Vaccination: Yes Physical Exam - Vital signs Vitals: Temp Pulse Resp BP Pulse Ox 98.1 F 74 20 137/96 H 97 12/07/18 12:20 12/07/18 12:20 12/07/18 12:20 12/07/18 12:20 12/07/18 12:20 Course - Vital Signs Vital signs: Temp Pulse Resp BP Pulse Ox 97.7 F 65 16 148/106 H 99 12/07/18 15:14 12/07/18 15:14 12/07/18 15:14 12/07/18 15:14 12/07/18 15:14 - Laboratory Laboratory results interpreted by me: 12/07/18 12:51 Urine Protein 30 H Urine Blood SMALL H Ur Leukocyte Esterase LARGE H Doctor's Discharge - Discharge Clinical Impression: Bacterial vaginosis, UTI (urinary tract infection) Condition: Stable Disposition: HOME, SELF-CARE Instructions: Nitrofurantoin ([facility]), Urinary Tract Infection ([facility]), Vaginosis, Bacterial ([facility]) Additional Instructions: You are being treated for bacterial vaginosis, an overgrowth of normal bacteria in the vagina. You are being sent home on an antibiotic called metronidazole. Take exactly as directed. Never drink alcohol while taking this antibiotic. Please return if you develop abdominal pain, fever greater than 101F, some vomiting, or any other symptoms that are concerning to you. Return immediately for any new or worsening symptoms. Follow up with primary care provider, call tomorrow to make followup appointment. Prescriptions: Metronidazole [Flagyl] 500 mg PO BID #14 tablet Nitrofurantoin Macrocrystal [Macrodantin] 100 mg PO BID #20 capsule Referrals: SHAYY YUSUF MD [ACTIVE STAFF] - Follow up as needed ESTEVAN BARTON MD [COMMUNITY BASED STAFF] - Follow up as needed
--- NOTE | 2018-12-07 12:43 | ER Document Report ---
ED General - General Chief Complaint: Vaginal Discharge Stated Complaint: URINARY ISSUES Time Seen by Provider: 12/07/18 12:16 Primary Care Provider: SHAYY YUSUF MD [ACTIVE STAFF] - Follow up as needed ESTEVAN BARTON MD [COMMUNITY BASED STAFF] - Follow up as needed Mode of Arrival: Ambulatory TRAVEL OUTSIDE OF THE [place] IN LAST 30 DAYS: No - HPI Notes: 28-year-old female presents to the ED for complaints of clear vaginal discharge that started approximately 3 days ago. Patient was placed on antibiotics for a UTI, however her record does show that she is placed on antiviral medication for gential herpes simplex. Patient reports she is having unprotected sexual intercourse with the same partner. States that her herpes is getting better, is almost completely resolved. Denies fevers, chills, chest pain,palpitations, shortness of breath, dyspnea, nausea, vomiting, diarrhea, abdominal pain, hematuria,blurred vision, double vision, loss of vision, speech changes, LH, dizziness, syncope, headaches, wheezing, ST, URI, neck pain, weakness, bowel or bladder dysfunction, saddle anesthesia, numbness or tingling in bilateral upper or lower extremities equally, muscle paralysis, weakness in bilateral upper or lower extremities equally or rash. - Related Data Allergies/Adverse Reactions: No Known Allergies Allergy (Verified 11/21/18 13:12) Past Medical History - General Information source: Patient - Social History Smoking Status: Unknown if Ever Smoked Family History: Reviewed & Not Pertinent Patient has suicidal ideation: No Patient has homicidal ideation: No - Past Medical History Cardiac Medical History: Reports: Hx Hypertension Pulmonary Medical History: Reports: Hx Asthma Neurological Medical History: Reports: Hx Migraine Endocrine Medical History: Reports: Hx Diabetes Mellitus Type 2 Renal/ Medical History: Reports: Hx Ovarian Cysts. Denies: Hx Peritoneal Dialysis Psychiatric Medical History: Reports: Hx Attention Deficit Hyperactivity Disorder - add, Hx Depression - Immunizations Hx Diphtheria, Pertussis, Tetanus Vaccination: Yes Review of Systems - Review of Systems Constitutional: No symptoms reported EENT: No symptoms reported Cardiovascular: No symptoms reported Respiratory: No symptoms reported Gastrointestinal: No symptoms reported Genitourinary: No symptoms reported Female Genitourinary: See HPI Musculoskeletal: No symptoms reported Skin: No symptoms reported Hematologic/Lymphatic: No symptoms reported Neurological/Psychological: No symptoms reported Physical Exam - Vital signs Vitals: Temp Pulse Resp BP Pulse Ox 98.1 F 74 20 137/96 H 97 12/07/18 12:20 12/07/18 12:20 12/07/18 12:20 12/07/18 12:12/07/18 12:20 - Notes Notes: PHYSICAL EXAMINATION: GENERAL: Well-appearing, well-nourished and in no acute distress. HEAD: Atraumatic, normocephalic. EYES: Pupils equal round and reactive to light, extraocular movements intact, conjunctiva are normal. ENT: Nares patent, oropharynx clear without exudates. Moist mucous membranes. NECK: Normal range of motion, supple without lymphadenopathy LUNGS: Breath sounds clear to auscultation bilaterally and equal. No wheezes rales or rhonchi. HEART: Regular rate and rhythm without murmurs ABDOMEN: Soft, nontender, nondistended abdomen. No guarding, no rebound. No masses appreciated. Female : External genitalia without erythema, exudate or discharge. Vaginal vault is without discharge. Cervix is of normal color without lesions. There is no bleeding noted. Uterus is noted to be of normal size and nontender. No cervical motion tenderness is seen. No masses are palpated. os closed, no adnexal tenderness or mass Musculoskeletal: Normal range of motion, no pitting or edema. No cyanosis. NEUROLOGICAL: Cranial nerves grossly intact. Normal speech, normal gait. Normal sensory, motor exams PSYCH: Normal mood, normal affect. SKIN: Warm, Dry, normal turgor, no rashes or lesions noted. Course - Re-evaluation Re-evalutation: Afebrile vital stable no distress. Wet mount does show BV, patient does have a UTI. GC negative. Advised to take medication as directed, do not drink as a will cause nausea and vomiting. No history of fever, flank pain, or constitution symptoms to suggest ascending infection at this time. Patient is well in appearance, tolerating oral intake without difficulty. No focal abdominal tenderness to suggest acute appendicitis, biliary pathology, acute pancreatitis, tubo-ovarian abscesses, or pelvic inflammatory disease. Patient will be started on antibiotics at this time. A culture has been sent. They will be discharged with return precautions and follow-up recommendations. Follow-up with primary care provider within the next 3 to 5 days. - Vital Signs Vital signs: Temp Pulse Resp BP Pulse Ox 98.1 F 74 20 137/96 H 97 12/07/18 12:20 12/07/18 12:20 12/07/18 12:20 12/07/18 12:20 12/07/18 12:20 - Laboratory Laboratory results interpreted by me: 12/07/18 12:51 Urine Protein 30 H Urine Blood SMALL H Ur Leukocyte Esterase LARGE H Discharge - Discharge Clinical Impression: Bacterial vaginosis, UTI (urinary tract infection) Condition: Stable Disposition: HOME, SELF-CARE Instructions: Urinary Tract Infection ([facility]), Nitrofurantoin ([facility]), Vaginosis, Bacterial ([facility]) Additional Instructions: You are being treated for bacterial vaginosis, an overgrowth of normal bacteria in the vagina. You are being sent home on an antibiotic called metronidazole. Take exactly as directed. Never drink alcohol while taking this antibiotic. Please return if you develop abdominal pain, fever greater than 101F, some vomiting, or any other symptoms that are concerning to you. Return immediately for any new or worsening symptoms. Follow up with primary care provider, call tomorrow to make followup appointment. Prescriptions: Metronidazole [Flagyl] 500 mg PO BID #14 tablet Nitrofurantoin Macrocrystal [Macrodantin] 100 mg PO BID #20 capsule Referrals: SHAYY YUSUF MD [ACTIVE STAFF] - Follow up as needed ESTEVAN BARTON MD [COMMUNITY BASED STAFF] - Follow up as needed
[2018-12-07 13:05] LABS: APPEARANCE,URINE CLOUDY; BILIRUBIN,URINE NEGATIVE (NEGATIVE); COLOR,URINE YELLOW; GLUCOSE, URINE NEGATIVE (NEGATIVE); KETONES,URINE NEGATIVE (NEGATIVE); LEUKOCYTE ESTERASE,URINE LARGE (NEGATIVE); NITRITE,URINE NEGATIVE (NEGATIVE); PROTEIN,URINE 30 mg/dL (NEGATIVE); URINE SPECIFIC GRAVITY 1.027; UROBILINOGEN,URINE NEGATIVE mg/dL (<2.0)
[2018-12-07 13:10] LABS: BACTERIA (WET MOUNT) 3+ BACTERIA SEEN; EPITHELIALS (WET MOUNT) 3+ EPITHELIALS SEEN; RBCS (WET MOUNT) RARE RBCS SEEN; T.VAGINALIS (WET MOUNT) NO TRICHOMONAS SEEN; WBCS (WET MOUNT) NO WBCS SEEN; YEAST (WET MOUNT) NO YEAST SEEN
[2018-12-07 14:37] LABS: CHLAM PCR NOT DETECTED (NOT DETECT)
[2018-12-07 15:18] VITALS: BP 148/106
== END 2018-12-07 15:27 | disposition home or self-care (01) ==
LOC: ER 12:12
DX: N76.0 Acute vaginitis (principal); B96.89 Other specified bacterial agents as the cause of diseases classified elsewhere; N39.0 Urinary tract infection, site not specified; A60.00 Herpesviral infection of urogenital system, unspecified; I10 Essential (primary) hypertension; J45.909 Unspecified asthma, uncomplicated; E11.9 Type 2 diabetes mellitus without complications
CPT/HCPCS: 81001; 81025; 87086; 87210; 87491; 87591